=== PATIENT | male | born 1965 | race Caucasian/White ===

== ENCOUNTER 2019-04-06 10:49 | Outpatient (CLI) | payer OTHER, SELFPAY ==
--- NOTE | ~2019-04-06 | XR_ITS ---
EXAMINATION: XR chest 2V EXAM DATE: 04/06/2019 11:30 INDICATION: Cough, dizziness. TECHNIQUE: Frontal and lateral projections of the chest obtained and reviewed. Comparison is made to prior examination from 03/12/2018. FINDINGS: The lungs are clear. There are no pleural effusions. The cardiomediastinal silhouette is within normal limits. There is no pneumothorax suspected. The bones and soft tissues are unremarkab le. Right-sided humeral head rotator cuff repair anchor. IMPRESSION: Normal chest x-ray exam. Reviewed, dictated and finalized at location A. COUNTER CLERK IMPRESSION: Normal chest x-ray exam.
== END 2019-04-06 10:50 | disposition home or self-care (01) ==
LOC: ANHIMG 10:53
PROVIDERS: PCP Family Medicine; Visit Provider Family Medicine
DX: R05 Cough (principal)
CPT/HCPCS: 71046

== ENCOUNTER 2019-05-07 11:36 | Inpatient (IN) | payer OTHER, SELFPAY ==
[2019-05-07] VITALS (10 sets, daily range): BP systolic 128–160; BP diastolic 88–104; PULSE 86–112; RESP 14–26; TEMP 36.5–36.9; O2SAT 93–100; BMI 27.7
--- NOTE | ~2019-05-07 | XR_ITS ---
EXAMINATION: XR chest 2V DATE: 05/07/2019 12:25 INDICATION: Cough, fever and chest congestion TECHNIQUE: PA and lateral views of the chest were obtained. COMPARISON: Chest radiograph dated 04/06/2019 FINDINGS: The lungs remain clear with no focal airspace opacities, pulmonary edema, pleural effusion or pneumot horax. The cardiomediastinal silhouette is normal. Suture anchor likely for rotator cuff repair at th e right humeral head. IMPRESSION: 1. No acute cardiopulmonary disease. Reviewed, dictated and finalized at location A.
--- NOTE | 2019-05-07 12:12 | ECG_ITS ---
Measurements Intervals [place] Rate: 107 P: 25 AL: 162 QRS: 27 QRSD: 93 T: -13 QT: 318 QTc: 424 Interpretive Statements SINUS TACHYCARDIA LEFT ATRIAL ENLARGEMENT ANTEROSEPTAL INFARCT, AGE INDETERMINATE BASELINE ARTIFACT- I, II, III, AVR, AVL, AVF ABNORMAL ECG Electronically Signed On 05-07-2019 12:49:14 CDT by Biju Keys D.O.
[2019-05-07 12:36] LABS: Basophils Percent Auto 0.2 % (0.2-1.2); Hematocrit 52.3 % (42.0-52.0); Hemoglobin 17.5 g/dL (14.0-18.0); Immature Granulocyte Absolute 0.03 K/mm3 (0.00-0.031); Immature Granulocyte Percent A 0.3 % (0-0.5); Lymphocytes Absolute Auto 0.89 K/mm3 (0.9-3.2); Lymphocytes Percent Auto 8.9 % (18.3-44.2); Mean Corpuscular HGB Conc 33.5 g/dl (32-36); Mean Corpuscular Hemoglobin 29.9 pg (26-34); Mean Corpuscular Volume 89.2 fl (80-100); Mean Platelet Volume 12.2 fl (7.4-10.4); Monocytes Absolute Auto 0.4 K/mm3 (0.1-0.6); Monocytes Percent Auto 3.8 % (2.6-8.5); Neutrophils Absolute Auto 8.6 K/mm3 (1.3-6.7); Neutrophils Percent Auto 86.8 % (45.5-73.1); Platelet Count Result 206 k/mm3 (150-375); Red Blood Count 5.86 M/mm3 (4.6-6.20); Red Cell Distribution Width 12.3 % (11.5-14.5)
--- NOTE | 2019-05-07 12:40 | ED.GENADULT ---
HPI - General Adult General Chief complaint: Unspecified Stated complaint: multiple c/o Time Seen by Provider: 05/07/19 12:13 Related Data Allergies Allergy/AdvReac Type Severity Reaction Status Date / Time Iodinated Contrast Media Allergy Unknown Rash Verified 05/07/19 11:49 iodine Allergy Unknown Rash Verified 05/07/19 11:49 Iodine and Iodide Containing Allergy Unknown Rash Verified 05/07/19 11:49 Produc ioversol Allergy Unknown Unknown Verified 05/07/19 11:49 naproxen Allergy Unknown Unknown Verified 05/07/19 11:49 prednisone Allergy Unknown Unknown Verified 05/07/19 11:49 MRI DYE Allergy Mild HIVES Uncoded 05/07/19 11:49 [facility] Social History Social History Smoking status: Never smoker Alcohol intake: current Gender identity (if verbalized by the patient): Male Course Vital Signs Vital signs: Vital Signs Temperature 36.5 C 05/07/19 11:49 Pulse Rate 110 H 05/07/19 11:49 Respiratory Rate 26 H 05/07/19 11:49 Blood Pressure 160/104 H 05/07/19 11:49 Pulse Oximetry 100 05/07/19 11:49 Temperature 36.5 C 05/07/19 11:49 Pulse Rate 106 H 05/07/19 11:55 Respiratory Rate 26 H 05/07/19 11:49 Blood Pressure 160/104 H 05/07/19 11:49 Pulse Oximetry 100 05/07/19 11:49 Medical Decision Making Vital Signs Vital Signs: Vital Signs Temperature 36.5 C 05/07/19 11:49 Pulse Rate 110 H 05/07/19 11:49 Respiratory Rate 26 H 05/07/19 11:49 Blood Pressure 160/104 H 05/07/19 11:49 Pulse Oximetry 100 05/07/19 11:49 Temperature 36.5 C 05/07/19 11:49 Pulse Rate 106 H 05/07/19 11:55 Respiratory Rate 26 H 05/07/19 11:49 Blood Pressure 160/104 H 05/07/19 11:49 Pulse Oximetry 100 05/07/19 11:49 Lab Data Result diagrams: 05/07/19 12:31 05/07/19 12:31 Labs: Lab Results 03/20/20 03/20/20 Range/Units 12:31 12:31 WBC 10.0 (4.5-10.0) K/mm3 RBC 5.86 (4.6-6.20) M/mm3 Hgb 17.5 (14.0-18.0) g/dL Hct 52.3 H (42.0-52.0) % MCV 89.2 (80-100) fl MCH 29.9 (26-34) pg MCHC 33.5 (32-36) g/dl RDW 12.3 (11.5-14.5) % Plt Count 206 (150-375) k/mm3 MPV 12.2 H (7.4-10.4) fl Immature Gran % (Auto) 0.3 (0-0.5) % Neut % (Auto) 86.8 H (45.5-73.1) % Lymph % (Auto) 8.9 L (18.3-44.2) % [place] % (Auto) 3.8 (2.6-8.5) % Eos % (Auto) 0.0 (0-4.4) % Baso % (Auto) 0.2 (0.2-1.2) % Lymph # (Auto) 0.89 L (0.9-3.2) K/mm3 [place] # (Auto) 0.4 (0.1-0.6) K/mm3 Eos # (Auto) 0.0 (0-0.3) K/mm3 Baso # (Auto) 0.0 (0.0-0.1) K/mm3 Abs Immat Gran (auto) 0.03 (0.00-0.031) K/mm3 Absolute Neuts (auto) 8.6 H (1.3-6.7) K/mm3 Absolute Nucleated RBC 0.0 (0.0-0.012) K/mm3 Nucleated RBC % 0.0 (0.0-0.2) % Sodium Pending Potassium Pending Chloride Pending Carbon Dioxide Pending BUN Pending Creatinine Pending Estim Creat Clear Calc Pending Estimated GFR Pending Glucose Pending Calcium Pending Discharge Plan Discharge Prescriptions: No Action lisinopril 10 mg tablet 10 mg PO DAILY Qty: 30 RF: 3 cefdinir 300 mg capsule 300 mg PO Q12H Qty: 20 RF: 0 (DME) insulin syringe-needle U-100 [BD Insulin Syringe Ultra-Fine] 1 mL 31 gauge x 5/16 syringe See Rx Instructions .ROUTE .MEDSUPPLY Qty: 200 RF: 3 (DME) OneTouch Verio Strip See Rx Instructions .ROUTE .MEDSUPPLY Qty: 200 RF: 3 Jardiance 25 mg tablet 25 mg PO DAILY Qty: 90 RF: 0 Humalog Mix 75-25 KwikPen 100 unit/mL (75-25) insulin pen 50 unit SUB-Q QAM 90 Days Qty: 45 RF: 0 atorvastatin 80 mg tablet 80 mg PO DAILY Qty: 30 RF: 3 carvedilol 6.25 mg tablet 6.25 mg PO Q12H Qty: 60 RF: 3
--- NOTE | 2019-05-07 12:41 | ED.HA ---
HPI - Headache General Chief Complaint: Unspecified Stated Complaint: multiple c/o Time Seen by Provider: 05/07/19 12:13 Source: patient Mode of arrival: ambulatory Limitations: no limitations History of Present Illness HPI Narrative: The pt is a 54 y/o male who presents to the ED c/o 5-6/10 left frontal PIERRE onset 3 days ago. Pt states that the pain is sharp, and is not improved or worsened by anything. He states that he has taken Tylenol without relief. Pt reports resolved subjective fever, cough, N/V, and palpitations, but denies diarrhea. MD elicited complaint: headache Onset (ago): day(s) (3) Location: left and frontal Quality & Timing: sharp Exacerbating factors: none Relieving factors: nothing Associated symptoms: fever (Subjective, resolved), nausea, vomiting, cough and other (Palpitation) Treatments prior to arrival: acetaminophen Related Data Home Medications Medication Instructions Recorded Confirmed atorvastatin 80 mg PO HS 05/07/19 05/07/19 ertugliflozin [Steglatro] 15 mg PO DAILY 05/07/19 05/07/19 Allergies Allergy/AdvReac Type Severity Reaction Status Date / Time naproxen Allergy Intermediate Rash Verified 05/07/19 16:40 prednisone Allergy Intermediate Stopped Verified 05/07/19 16:40 Breathing Iodinated Contrast Media Allergy Mild Hives Verified 05/07/19 16:40 MRI DYE Allergy Mild HIVES Uncoded 05/07/19 16:40 Review of Systems Review of Systems: Narrative: Review of Systems Constitutional: Positive for resolved subjective fever. Respiratory: Positive for cough. Cardiovascular: Positive for palpitations. Gastrointestinal: Positive for nausea and vomiting. Negative for diarrhea. Neurological: Positive for 5-6/10 sharp left frontal PIERRE. All systems reviewed & are unremarkable except as noted in HPI and below PMFSH Past Medical History Medical History (Updated 05/07/19 @ 16:45 by Karen Saucedo MD) Carpal tunnel syndrome, right CKD stage 3 due to type 2 diabetes mellitus Erectile dysfunction Hypertension, essential Hypogonadism, male Ischemic cardiomyopathy Mild cardiomegaly Other hyperlipidemia ST elevation (STEMI) myocardial infarction involving left anterior descending coronary artery (10/17/16) Type 2 diabetes mellitus without complications Unspecified sleep apnea URI (upper respiratory infection) Vasculitis Surgical History Surgical History (Updated 05/07/19 @ 13:18 by Silas Salcido) H/O shoulder surgery left History of carpal tunnel release Right Hx of tonsillectomy Previous back surgery Social History Social History Smoking status: Never smoker Second hand tobacco smoke exposure: Yes Alcohol intake: unknown Substance use: never Substance use type: does not use Gender identity (if verbalized by the patient): Male Spiritual care concerns: No Agree to blood products: Yes Comments PCP: Dr. Liang Exam Narrative: Exam Narrative: Constitutional: Appears well-developed. No distress. HENT: Head: Normocephalic. Nose: Nose normal. Mouth/Throat: Oropharynx is clear and moist. Eyes: Conjunctiva are normal. Neck: Normal range of motion. Neck supple. Cardiovascular: Tachycardic and regular rhythm. Pulmonary/Chest: Effort normal and breath sounds normal. Abdominal: Soft. There is no tenderness. Musculoskeletal: Normal range of motion. No edema. Neurological: Alert and oriented to person, place, and time. Skin: Skin is warm. No pallor. Psychiatric: Normal mood and affect. Neuro: General: oriented to person, oriented to place, oriented to time and patient oriented x3 Cranial nerves: Yes CN's II-XII intact bilaterally Cognition (Neuro): normal cognition Speech: normal speech Motor exam (neuro): 5/5 motor strength present throughout Sensory Exam: normal sensation Coordination: [id number] test normal and [id number] test normal Course Consultations Consultation #1: Discussed case wit
[2019-05-07 13:19] LABS: Blood Urea Nitrogen 35 mg/dL (9-20); Calcium 10.6 mg/dL (8.4-10.2); Carbon Dioxide 23 mmol/L (22-30); Chloride 89 mmol/L (98-107); Estimated CRCL calculation 82 ml/min; Estimated Glomerular Filt Rate > 60; Potassium 5.3 mmol/L (3.4-5.0); Sodium 129 mmol/L (137-145)
[2019-05-07 13:23] LABS: Glucose 1022 mg/dL (75-110)
--- NOTE | 2019-05-07 13:23 | PC.NURSE ---
glucose level of 1022 per lab. notified
[2019-05-07 13:26] LABS: NT Pro B Type Natriuretic Pept 123 PG/ML (5-100); Troponin I < 0.012 ng/mL (0.000-0.034)
[2019-05-07 13:49] LABS: D Dimer 0.27 ug/mL (<0.48)
[2019-05-07] MEDS: SODIUM CHLORIDE 0.9% IV 1,000 ML 999 ML IV CONT ×2 (13:57→15:42)
[2019-05-07] MEDS: INSULIN HUMAN REGULAR (*BKC) 100 UNITS/ML 10 UNITS IV PUSH (13:58)
[2019-05-07] MEDS: METOCLOPRAMIDE HCL INJ 10 MG/2 ML VIAL IV PUSH (13:58)
[2019-05-07 15:05] LABS: Glucose Point of Care > 500 (65-105)
[2019-05-07] MEDS: INSULIN HUMAN REGULAR (*BKC) 100 UNITS in SODIUM CHLORIDE 0.9% IV 99 ML 19.2 UNITS IV CONT (15:40)
[2019-05-07 16:16] LABS: Blood Urea Nitrogen 34 mg/dL (9-20); Calcium 10.2 mg/dL (8.4-10.2); Carbon Dioxide 21 mmol/L (22-30); Chloride 103 mmol/L (98-107); Estimated CRCL calculation 91 ml/min; Estimated Glomerular Filt Rate > 60; Potassium 4.3 mmol/L (3.4-5.0); Sodium 137 mmol/L (137-145)
--- NOTE | 2019-05-07 16:20 | PC.NURSE ---
This patient, Hunter Chandler, was admitted to Intensive Care Unit-1. Patient/family oriented to hospital policies and general routines including ID bracelet, bed and alarms, visiting hours, pain management, procedures, bathroom and other care routines, personal items, smoking policy, room service/diet, and visiting hours. Valuables list has been completed. Information on how to activate the Rapid Response Team has been discussed. Patient/Family are encouraged to report perceived risks to care and to ask questions if they do not understand what they are told or what they should do.
[2019-05-07 16:21] LABS: Glucose 639 mg/dL (75-110)
[2019-05-07 16:25] LABS: Troponin I < 0.012 ng/mL (0.000-0.034)
--- NOTE | 2019-05-07 17:00 | PM.IMHP ---
H&P: HPI History of Present Illness Chief complaint: Shortness of breath, nausea, and vomiting. Narrative: Hunter Chandler is a 54-year-old male with insulin-dependent type 2 diabetes mellitus, coronary artery disease with history of GA at the age of 50, hypertension, and hyperlipidemia who presented to the emergency department earlier today via private vehicle from home for evaluation of shortness of breath, nausea, and vomiting. He has not been feeling well for the past 3 days, initially with cold symptoms to include a mild cough rarely productive of clear phlegm, subjective fever for which he has been taking Tylenol, frontal headache, nausea, and several episodes of emesis. Today he began feeling short of breath with racing heart, and thus he came in for evaluation. Random glucose on arrival was 1022, and with further questioning he admits that he has not been checking his glucose for the last 1 month ?because it cuts up my fingers? and he also admits that on occasion he forgets to take his insulin, although his girlfriend tries to remind him to take it daily. He denies recent travel and concerns for COVID exposure. He has not had a documented fever and denies chills and sweats. His headache has essentially resolved. No neck pain, odynophagia, or rash. He denies chest pain and pleuritic pain. No orthopnea, PND, or lower extremity edema. He denies hematemesis, melena, hematochezia. No diarrhea. No dysuria, urgency, or hesitancy. He denies blurry vision, polyuria, and polydipsia. Review of Systems Review of Systems: Narrative: Twelve systems were reviewed with pertinent positives and negatives as per HPI. Notes subjective fever as above. He apparently had a similar cold virus approximately 1 month ago and symptoms returned this Friday. 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 His last hemoglobin A1c was some around 7.0. Denies any recent lows. Rarely will he get neuropathy symptoms, mainly in his toes. No history of retinopathy. He apparently was diagnosed with sleep apnea but after losing weight ?no longer has it.? DOT physical in July 2018 apparently demonstrated some abnormalities on his EKG, with subsequent negative stress test. He also had an overnight sleep study at that time, showing that his sleep apnea had resolved, reportedly. Except as documented, all other systems were reviewed and are negative. [facility] Past Medical History Medical History (Updated 05/07/19 @ 17:27 by Gabby Seo PA-C) Erectile dysfunction Hyperlipidemia Hypertension Hypogonadism, male Insulin dependent type 2 diabetes mellitus Ischemic cardiomyopathy Reported history of ?mild? ischemic cardiomyopathy. No echocardiogram has been done at this facility that I can see. Obstructive sleep apnea Sleep study in July 2018 demonstrated no need for CPAP. ST elevation (STEMI) myocardial infarction involving left anterior descending coronary artery (10/17/16) Status post drug-eluting stent x2 to the LAD, done at [facility]. Stress test in July 2018 was reportedly unremarkable. Surgical History Surgical History (Updated 05/07/19 @ 17:38 by Gabby Seo PA-C) Status post carpal tunnel release of both wrists Status post right rotator cuff repair Status post spinal surgery L5 fusion with hardware. Status post tonsillectomy Family History Family History Father Family history of lung cancer Mother Family history of congestive heart failure Other Diabetes mellitus Hypertension Social History Social History (Updated 05/07/19 @ 17:24 by Gabby Seo PA-C) Social History: The patient lives in [place] with his mother. He designates his mother, Arlette, as his surrogate decision maker and he wishes to be a full code. 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 He is a lifelong nonsmoker and de
[2019-05-07 17:29] LABS: Beta-Hydroxybutyrate/Acetoacetate 3.47 mmol/L (0.02-0.27)
[2019-05-07] MEDS: SODIUM CHLORIDE 0.9% IV 1,000 ML 150 ML IV CONT (17:38)
[2019-05-07 17:44] LABS: Glucose Point of Care 379 (65-105)
[2019-05-07 17:54] LABS: Hemoglobin A1C > 14.0 % (<5.7)
[2019-05-07 18:07] LABS: Add Urine Microscopic? YES; Appearance Urine Clear (Clear); Bilirubin Urine Negative (Negative); Blood Urine Negative (Negative); Color Urine Straw (Yellow); Glucose Urine UA 3+ mg/dL (Negative); Ketones Urine 1+ mg/dL (Negative); Leukocyte Esterase Ur Negative LEU/UL (Negative); Mucus Urine Rare /lpf; Nitrate Urine Negative (Negative); Protein Urine 1+ mg/dL (Negative); Specific Grav Ur 1.036 (1.001-1.035); Squamous Epithelial Cell Urine Rare /hpf (Few); Urobilinogen Urine Negative mg/dL (<2.0)
[2019-05-07 18:32] LABS: Blood Urea Nitrogen 30 mg/dL (9-20); Calcium 10.2 mg/dL (8.4-10.2); Carbon Dioxide 34 mmol/L (22-30); Chloride 104 mmol/L (98-107); Estimated CRCL calculation 71 ml/min; Estimated Glomerular Filt Rate > 60; Glucose 418 mg/dL (75-110); Magnesium 2.3 mg/dL (1.6-2.3); Phosphorus 3.9 mg/dL (2.5-4.5); Potassium 3.9 mmol/L (3.4-5.0); Sodium 143 mmol/L (137-145)
[2019-05-07 18:39] LABS: Glucose Point of Care 361 (65-105)
[2019-05-07 18:47] LABS: Beta-Hydroxybutyrate/Acetoacetate 0.62 mmol/L (0.02-0.27)
[2019-05-07 19:31] LABS: Glucose Point of Care 323 (65-105)
[2019-05-07 20:04] LABS: Troponin I < 0.012 ng/mL (0.000-0.034)
[2019-05-07] MEDS: carvediloL 6.25 MG TABLET PO (20:12)
[2019-05-07] MEDS: ATORVASTATIN 40 MG TABLET 80 MG PO (20:13)
[2019-05-07 20:16] LABS: Glucose Point of Care 267 (65-105)
[2019-05-07 21:14] LABS: Glucose Point of Care 189 (65-105)
[2019-05-07] MEDS: KCL 20 MEQ/D5/0.45% SOD CHL 1,000 ML 150 ML IV CONT (21:21)
[2019-05-07 22:12] LABS: Glucose Point of Care 171 (65-105)
[2019-05-07 22:13] LABS: Blood Urea Nitrogen 30 mg/dL (9-20); Calcium 9.9 mg/dL (8.4-10.2); Carbon Dioxide 35 mmol/L (22-30); Chloride 107 mmol/L (98-107); Estimated CRCL calculation 88 ml/min; Estimated Glomerular Filt Rate > 60; Glucose 179 mg/dL (75-110); Potassium 4.2 mmol/L (3.4-5.0); Sodium 148 mmol/L (137-145)
[2019-05-07 22:58] LABS: Glucose Point of Care 163 (65-105)
[2019-05-08] VITALS (8 sets, daily range): BP systolic 124–158; BP diastolic 70–93; PULSE 65–93; RESP 13–19; TEMP 36.7–36.9; O2SAT 96–99
[2019-05-08] MEDS: SODIUM CHLORIDE 0.45% 1,000 ML 100 ML IV CONT (00:29)
[2019-05-08 00:39] LABS: Glucose Point of Care 360 (65-105)
[2019-05-08 01:23] LABS: Blood Urea Nitrogen 26 mg/dL (9-20); Calcium 8.7 mg/dL (8.4-10.2); Carbon Dioxide 29 mmol/L (22-30); Chloride 106 mmol/L (98-107); Estimated CRCL calculation 79 ml/min; Estimated Glomerular Filt Rate > 60; Glucose 327 mg/dL (75-110); Potassium 4.3 mmol/L (3.4-5.0); Sodium 142 mmol/L (137-145)
[2019-05-08 05:44] LABS: Blood Urea Nitrogen 27 mg/dL (9-20); Calcium 8.9 mg/dL (8.4-10.2); Carbon Dioxide 37 mmol/L (22-30); Chloride 105 mmol/L (98-107); Estimated CRCL calculation 88 ml/min; Estimated Glomerular Filt Rate > 60; Glucose 219 mg/dL (75-110); Potassium 4.6 mmol/L (3.4-5.0); Sodium 143 mmol/L (137-145)
[2019-05-08] MEDS: lisinopriL 10 MG TABLET PO (08:48)
[2019-05-08] MEDS: carvediloL 6.25 MG TABLET PO (08:48)
[2019-05-08 09:06] LABS: Base Excess ABG 2.3 mEq/l (+/-2.0); Fractional Inspired Oxygen 21 %; HCO3 ABG 27.5 mEq/l (22.0-26.0); Modified Allen's Test Pass; Oxygen Content ABG 20.7 %vol (16.0-22.0); Oxygen Saturation ABG 95.7 % (95.0-100.0); PCO2 ABG 44.8 mmHg (35.0-45.0); PO2 ABG 79.1 mmHg (80.0-100.0); PO2 FiO2 Ratio Arterial Blood 3.77 %; Site Drawn RIGHT RADIAL; Total Hemoglobin 15.5 g/dL (12.0-18.0); pH ABG 7.406 (7.350-7.450)
[2019-05-08 09:07] LABS: Device ROOM AIR
--- NOTE | 2019-05-08 10:27 | PM.DS ---
DS: Diagnosis Admitting Diagnosis Admitting Diagnosis: Type 2 diabetes mellitus with hyperglycemia DS: Summary Hospital Course Reason for hospitalization: hyperglycemia Hospital Course: Was not monitoring sugars and was taking 5 U instead of 50 U. BS 1022 at admission. Treated with IVF and insulin drip overnight. Sugars rapidly corrected. Tolerated diet. Wanted to go home. Status at Discharge Functional status at discharge: independent ambulation Overall status at discharge: patient is back to baseline Time Spent with Patient Time attestation: Total time spent providing and/or coordinating discharge services: 33 min Exam Narrative: Exam Narrative: HEENT: EOMI, PERRL, pharyngeal mucosa pink and intact NECK: No JVD, adenopathy, or thyromegaly CHEST: Clear to auscultation. Normal effort. HEART: NL S1/S2, regular, no murmur ABDOMEN: BS+, soft, nontender, no mass, no bruits EXTREMITIES: No cyanosis, edema, or clubbing NEUROLOGIC: CN intact and symmetric to inspection. MUSCULOSKELETAL: Tone and strength symmetric. PSYCH: Alert. Oriented to person, place, and time. DS: Data Data Completed and Pending Labs on day of discharge: Labs from last 24 hours 05/08/19 05/08/19 05/08/19 09:01 04:51 01:03 WBC RBC Hgb Hct MCV MCH MCHC RDW Plt Count MPV Immature Gran % (Auto) Neut % (Auto) Lymph % (Auto) [place] % (Auto) Eos % (Auto) Baso % (Auto) Lymph # (Auto) [place] # (Auto) Eos # (Auto) Baso # (Auto) Abs Immat Gran (auto) Absolute Neuts (auto) Absolute Nucleated RBC Nucleated RBC % D-Dimer Puncture Site Right radial ABG pH 7.406 ABG pCO2 44.8 ABG pO2 79.1 L ABG PO2/FiO2 Ratio 3.77 ABG HCO3 27.5 H ABG O2 Saturation 95.7 ABG O2 Content 20.7 ABG Base Excess 2.3 A-a Gradient 17.0 Oxyhemoglobin 95.0 Total Hemoglobin 15.5 O2 Delivery Device Room air O2 Liters/Min Not Reportable FiO2 21 Sodium 143 142 Potassium 4.6 4.3 Chloride 105 106 Carbon Dioxide 37 H 29 BUN 27 H 26 H Creatinine 0.80 0.90 Estim Creat Clear Calc 88 79 Estimated GFR > 60 > 60 Glucose 219 H 327 H POC Capillary Glucose Hemoglobin A1c Calcium 8.9 8.7 Phosphorus Magnesium Troponin I NT-Pro-B Natriuret Pep Beta-Hydroxybutyrate/Acetoacetate Urine Color Urine Appearance Urine pH Ur Specific [place] Urine Protein Urine Glucose (UA) Urine Ketones Ur Blood (Man) Urine Nitrate Urine Bilirubin Urine Urobilinogen Leukocyte Esterase Rfl Urine WBC Ur Squamous Epith Cells Hyaline Casts Urine Mucus 05/08/19 05/07/19 05/07/19 00:33 22:56 22:10 WBC RBC Hgb Hct MCV MCH MCHC RDW Plt Count MPV Immature Gran % (Auto) Neut % (Auto) Lymph % (Auto) [place] % (Auto) Eos % (Auto) Baso % (Auto) Lymph # (Auto) [place] # (Auto) Eos # (Auto) Baso # (Auto) Abs Immat Gran (auto) Absolute Neuts (auto) Absolute Nucleated RBC Nucleated RBC % D-Dimer Puncture Site ABG pH ABG pCO2 ABG pO2 ABG PO2/FiO2 Ratio ABG HCO3 ABG O2 Saturation ABG O2 Content ABG Base Excess A-a Gradient Oxyhemoglobin Total Hemoglobin O2 Delivery Device O2 Liters/Min FiO2 Sodium Potassium Chloride Carbon Dioxide BUN Creatinine Estim Creat Clear Calc Estimated GFR Glucose POC Capillary Glucose 360 H 163 H 171 H Hemoglobin A1c Calcium Phosphorus Magnesium Troponin I NT-Pro-B Natriuret Pep Beta-Hydroxybutyrate/Acetoacetate Urine Color Urine Appearance Urine pH Ur Specific [place] Urine Protein Urine Glucose (UA) Urine Ketones Ur Blood (Man) Urine Nitrate Urine Bilirubin Urine Urobilinogen Leukocyte Esterase Rfl Urine WBC Ur Squamous Epith Cell
--- NOTE | 2019-05-08 11:17 | WPDCNINT ---
Assessment and Plan Assessment and plan (1) Electrolyte abnormality: Code(s): E87.8 - Other disorders of electrolyte and fluid balance, not elsewhere classified Status: Acute Assessment and Plan: He had hyperkalemia yesterday likely secondary to mild acidosis. It improved with insulin drip and IV fluid. Serum sodium was 129 but corrected sodium was 144. (2) Severe hyperglycemia due to diabetes mellitus: Code(s): E11.65 - Type 2 diabetes mellitus with hyperglycemia Status: Acute Assessment and Plan: He was started on insulin drip and IV fluids. His anion gap was 17 but his bicarb was 23. His anion gap closed and he was transition to his basal bolus insulin already. Beta hydroxy butyric acid was elevated and the level at the time of presentation was 3.47 which has down trended to 0.62. Seems to be tolerating well. He is able to tolerate a diet. He has improved symptomatically as well. Encouraged him to be more compliant with his insulin management protocol and and dietary recommendations. Likely etiology is noncompliance with the medication regimen. He does not seem to have any evidence of any infectious etiology. (3) Insulin dependent type 2 diabetes mellitus: Code(s): E11.9 - Type 2 diabetes mellitus without complications; Z79.4 - skilled nursing (current) use of insulin Status: Acute Assessment and Plan: I encouraged him to be his home basal dose of insulin and dietary recommend (4) Hypertension: Code(s): I10 - Essential (primary) hypertension Status: Acute Assessment and Plan: His antihypertensive medications were on hold here in the hospital. It will be resumed at the time of discharge. (5) Ischemic cardiomyopathy: Code(s): I25.5 - Ischemic cardiomyopathy Status: Acute Assessment and Plan: He is currently euvolemic. He received IV fluid but did not develop any signs of fluid overload. Additional Plan DVT prophylaxis with subcu heparin GI prophylaxis not indicated He will be downgraded to medical floor with the medical team planning to discharge him home today. Due to a high probability of clinically significant, life threatening deterioration, the patient required my highest level of preparedness to intervene emergently and I personally spent this critical care time directly and personally managing the patient. This critical care time included obtaining a history; examining the patient; pulse oximetry; ordering and review of studies; arranging urgent treatment with development of a management plan; evaluation of patient's response to treatment; frequent reassessment; and discussions with other providers. It was exclusive of separately billable procedures and treating other patients and teaching time. Please see Assessment and Plan section and the rest of the note for further information on patient assessment and treatment. Harpsichord Maker Consult Note Consult date: 05/08/19 Time Seen: 09:24 HPI: Hunter Chandler is a 54 year old male with past medical history of type 2 diabetes mellitus, coronary artery disease with history of [place], hypertension and hyperlipidemia who came into the ED with complaints of feeling of being unwell, shortness of breath nausea and vomiting. He has been non compliant to the medication regimen and B's some doses of insulin. He is also not compliant with the dietary recommendations as well. He did have some mild cough with clear phlegm but did not have any fever. Denied have any headache. He was evaluated in the ED. His blood sugar was 1022, Anion gap 17 and bicarb of 23. He did not have any signs and symptoms of any infectious etiology. Denied have any recent travel or any concerning exposure. He did not have any orthopnea or lower extremity edema. Denied having hematemesis melena or hematochezia. Denied have any abdominal pain and dysuria or diarrhea. He was started on insulin drip
== END 2019-05-08 11:15 | disposition home or self-care (01) | DRG 638 ==
LOC: ANHED 15:09 → ANHICU 15:22
PROVIDERS: Physician Assistant; Admitting Provider Internal Medicine; Emergency Provider Emergency Medicine; PCP Family Medicine; Visit Provider Internal Medicine
DX: E11.65 Type 2 diabetes mellitus with hyperglycemia (principal); E87.2 Acidosis; Z28.21 Immunization not carried out because of patient refusal; Z79.4 Long term (current) use of insulin; I25.10 Atherosclerotic heart disease of native coronary artery without angina pectoris; I25.2 Old myocardial infarction; I10 Essential (primary) hypertension; E78.5 Hyperlipidemia, unspecified; E11.42 Type 2 diabetes mellitus with diabetic polyneuropathy; N52.9 Male erectile dysfunction, unspecified; I25.5 Ischemic cardiomyopathy; G47.33 Obstructive sleep apnea (adult) (pediatric); Z98.1 Arthrodesis status; E87.5 Hyperkalemia; Z91.14 Patient's other noncompliance with medication regimen; Z91.11 Patient's noncompliance with dietary regimen
CPT/HCPCS: 36415; 36600; 71046; 80048; 81001; 82010; 82805; 82948; 83036; 83735; 83880; 84100; 84484; 85025; 85380; 87081; 93005; 96361; 96365; 96375; 96376; 99285; A9270; J1200; J1815; J2765; J3480; J7030

== ENCOUNTER 2019-05-18 09:19 | Outpatient (CLI) | payer OTHER, SELFPAY ==
[2019-05-18 10:02] LABS: Blood Urea Nitrogen 16 mg/dL (9-20); Calcium 8.6 mg/dL (8.4-10.2); Carbon Dioxide 30 mmol/L (22-30); Chloride 98 mmol/L (98-107); Estimated Glomerular Filt Rate > 60; Glucose 401 mg/dL (75-110); Potassium 4.4 mmol/L (3.4-5.0); Sodium 133 mmol/L (137-145)
== END 2019-05-18 09:20 | disposition home or self-care (01) ==
PROVIDERS: PCP Family Medicine; Visit Provider Physician Assistant Medical
DX: E11.65 Type 2 diabetes mellitus with hyperglycemia (principal)
CPT/HCPCS: 36415; 80048

== ENCOUNTER 2019-05-25 09:32 | Outpatient (CLI) | payer OTHER, SELFPAY ==
[2019-05-25 10:47] LABS: Blood Urea Nitrogen 20 mg/dL (9-20); Calcium 10.1 mg/dL (8.4-10.2); Carbon Dioxide 32 mmol/L (22-30); Chloride 100 mmol/L (98-107); Estimated Glomerular Filt Rate > 60; Glucose 47 mg/dL (75-110); Potassium 4.4 mmol/L (3.4-5.0); Sodium 136 mmol/L (137-145)
== END 2019-05-25 09:33 | disposition home or self-care (01) ==
PROVIDERS: PCP Family Medicine; Visit Provider Nurse Practitioner Family
DX: E87.8 Other disorders of electrolyte and fluid balance, not elsewhere classified (principal)
CPT/HCPCS: 36415; 80048

== ENCOUNTER 2019-06-02 09:26 | Outpatient (CLI) | payer OTHER, SELFPAY ==
[2019-06-02 10:43] LABS: Blood Urea Nitrogen 19 mg/dL (9-20); Calcium 9.5 mg/dL (8.4-10.2); Carbon Dioxide 35 mmol/L (22-30); Chloride 98 mmol/L (98-107); Estimated Glomerular Filt Rate > 60; Glucose 156 mg/dL (75-110); Potassium 4.8 mmol/L (3.4-5.0); Sodium 136 mmol/L (137-145)
== END 2019-06-02 09:27 | disposition home or self-care (01) ==
PROVIDERS: PCP Family Medicine; Visit Provider Nurse Practitioner Family
DX: E87.1 Hypo-osmolality and hyponatremia (principal)
CPT/HCPCS: 36415; 80048

== ENCOUNTER 2019-09-06 06:55 | Outpatient (CLI) | payer OTHER, SELFPAY ==
[2019-09-06 07:58] LABS: Creatinine Urine 53.7 mg/dL
[2019-09-06 08:04] LABS: MALB Creatinine Ratio 53.4 mg/g (0-30); Microalbumin Urine Random 28.7 mg/L (0-16.7)
[2019-09-06 08:14] LABS: Free T4 Free Thyroxine 0.73 ng/mL (0.78-2.19)
[2019-09-10 14:22] LABS: Testosterone Free 30.2 pg/mL (35.0-155.0); Testosterone Total 201 ng/dL (250-1100)
== END 2019-09-06 06:56 | disposition home or self-care (01) ==
PROVIDERS: PCP Family Medicine; Visit Provider Internal Medicine Endocrinology, Diabetes & Metabolism
DX: R79.89 Other specified abnormal findings of blood chemistry (principal); E11.65 Type 2 diabetes mellitus with hyperglycemia; E29.1 Testicular hypofunction
CPT/HCPCS: 36415; 82043; 84402; 84403; 84439; 84443

== ENCOUNTER 2019-09-25 06:52 | Outpatient (CLI) | payer OTHER, SELFPAY ==
[2019-09-25 07:21] LABS: Hematocrit 46.1 % (42.0-52.0); Hemoglobin 15.2 g/dL (14.0-18.0)
[2019-09-25 07:32] LABS: Alanine Aminotransferase 28 U/L (4-50); Alkaline Phosphatase 62 U/L (38-126); Anion Gap 5 mmol/L (8-16); Aspartate Amino Transferase 24 U/L (17-59); Bilirubin,Total 0.6 mg/dL (0.2-1.3); Blood Urea Nitrogen 25 mg/dL (9-20); Calcium 8.7 mg/dL (8.4-10.2); Carbon Dioxide 32 mmol/L (22-30); Chloride 101 mmol/L (98-107); Estimated Glomerular Filt Rate > 60; Glucose 169 mg/dL (75-110); Potassium 4.2 mmol/L (3.4-5.0); Sodium 138 mmol/L (137-145)
[2019-09-25 08:02] LABS: Prostate Specific Antigen 0.7 ng/mL (< OR = 4.0)
[2019-09-30 14:17] LABS: Testosterone Free 45.3 pg/mL (35.0-155.0); Testosterone Total 328 ng/dL (250-1100)
== END 2019-09-25 06:53 | disposition home or self-care (01) ==
PROVIDERS: PCP Family Medicine; Visit Provider Internal Medicine Endocrinology, Diabetes & Metabolism
DX: E11.65 Type 2 diabetes mellitus with hyperglycemia (principal); E29.1 Testicular hypofunction; E66.9 Obesity, unspecified; E78.5 Hyperlipidemia, unspecified; I10 Essential (primary) hypertension; Z68.36 Body mass index [BMI] 36.0-36.9, adult
CPT/HCPCS: 36415; 80053; 84153; 84402; 84403; 85014; 85018; G0103

== ENCOUNTER 2019-11-27 06:52 | Outpatient (CLI) | payer OTHER, SELFPAY ==
[2019-11-27 08:20] LABS: Cholesterol 138 mg/dL (0-200); HDL Direct 36 mg/dL; Triglycerides 87 mg/dL (<150)
[2019-11-27 08:31] LABS: LDL Cholesterol Direct 78 mg/dL
== END 2019-11-27 06:53 | disposition home or self-care (01) ==
PROVIDERS: PCP Family Medicine; Visit Provider Internal Medicine Cardiovascular Disease
DX: E78.5 Hyperlipidemia, unspecified (principal)
CPT/HCPCS: 36415; 80061

== ENCOUNTER 2020-03-27 13:51 | Outpatient (CLI) | payer OTHER, SELFPAY ==
--- NOTE | ~2020-03-27 | XR_ITS ---
EXAMINATION:XR_[id number]_CR DATE: 03/27/2020 14:17 INDICATION: Cervicalgia with left-sided neck pain TECHNIQUE: AP, lateral, lateral swimmers and odontoid views of the cervical spine are provided. COMPARISON: None FINDINGS: Alignment is normal. Odontoid is intact. Normal atlantoaxial interval. Vertebral body heights are no rmal. Moderate disc height loss at C5-C6 with associated mild left-sided and moderate right-sided unc overtebral osteoarthritis. Remaining disc heights are normal. Mild multilevel cervical facet osteoart hritis. Prevertebral soft tissues are normal. Visualized apices of lungs are clear. IMPRESSION: 1. Cervical spondylosis, moderate at C5-C6 and otherwise mild. Reviewed, dictated and finalized at location A. 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
== END 2020-03-27 13:52 | disposition home or self-care (01) ==
LOC: ANHIMG 13:54
PROVIDERS: PCP Family Medicine; Visit Provider Nurse Practitioner Family
DX: M47.892 Other spondylosis, cervical region (principal)
CPT/HCPCS: 72040

== ENCOUNTER 2020-05-19 06:52 | Outpatient (CLI) | payer OTHER, SELFPAY ==
[2020-05-19 07:49] LABS: Anion Gap 6 mmol/L (8-16); Blood Urea Nitrogen 25 mg/dL (9-20); Calcium 9.3 mg/dL (8.4-10.2); Carbon Dioxide 35 mmol/L (22-30); Chloride 101 mmol/L (98-107); Cholesterol 160 mg/dL (0-200); Estimated Glomerular Filt Rate > 60; Glucose 304 mg/dL (75-110); HDL Direct 45 mg/dL; Potassium 4.4 mmol/L (3.4-5.0); Sodium 142 mmol/L (137-145); Triglycerides 104 mg/dL (<150)
[2020-05-19 08:01] LABS: LDL Cholesterol Direct 84 mg/dL
[2020-05-19 08:15] LABS: MALB Creatinine Ratio 33.9 mg/g (0-30); Microalbumin Urine Random 30.5 mg/L (0-16.7)
== END 2020-05-19 06:53 | disposition home or self-care (01) ==
PROVIDERS: PCP Family Medicine; Visit Provider Internal Medicine Endocrinology, Diabetes & Metabolism
DX: E11.65 Type 2 diabetes mellitus with hyperglycemia (principal); Z79.4 Long term (current) use of insulin
CPT/HCPCS: 36415; 80048; 80061; 82043; 84443

== ENCOUNTER 2020-07-14 10:58 | Outpatient (CLI) | payer OTHER, SELFPAY ==
--- NOTE | ~2020-07-14 | XR_ITS ---
EXAMINATION: XR lumbar spine 2-3V DATE: 07/14/2020 11:36 INDICATION: Low back pain TECHNIQUE: Anteroposterior and lateral views of the lumbar spine, and cone-down lateral view of the l umbosacral junction were obtained. COMPARISON: 04/09/2017 FINDINGS: There are changes of posterior fusion and laminectomy at L5-S1. An interbody device is seen in the L5-S1 disc space. There are 5 mm of stable anterolisthesis of L5 on S1. There are [address] able retrolisthesis of L4 on L5. The vertebral body heights are maintained. There is no fracture. The bowel gas pattern is normal. Small degenerative osteophytes project from the anterior endplates of m ultiple vertebral bodies. IMPRESSION: 1. Mild lumbar spondylosis without acute findings or significant interval change. Reviewed, dictated and finalized at location B. IMPRESSION: 1. Mild lumbar spondylosis without acute findings or significant interval sujatha messina
== END 2020-07-14 10:59 ==
PROVIDERS: PCP Family Medicine
DX: S30.0XXA Contusion of lower back and pelvis, initial encounter (principal); X58.XXXA Exposure to other specified factors, initial encounter; M47.896 Other spondylosis, lumbar region
CPT/HCPCS: 72100

== ENCOUNTER 2020-11-14 09:22 | Outpatient (CLI) | payer OTHER, SELFPAY ==
--- NOTE | 2020-11-14 09:39 | EST_ITS ---
Patient Info Name: Hunter Chandler Age: 55 years : 1965 Gender: Male Ht: 67 in Wt: 252 lbs BSA: 2.38 m2 HR: 84 bpm BP: 135 / 68 mmHg Exam Date: 11/14/2020 9:51 AM Exam Location: [facility] Stress Patient Status: Outpatient Admit Date: 11/14/2020 Staff Ordering Physician: Biju Keys DO Attending Provider: Biju Keys DO Exercise Technologist: Lauryn Waller CT Exercise Physician: Biju Keys DO Exam Type: CA stress test treadmill Study Info Indications I25.10 - Atherosclerotic heart disease of [place] coronary artery without angina pectoris An exercise stress test was performed. Summary 1. 1. Abnormal West exercise stress test for ischemic ST changes by ECG criteria. 2. 2. Good functional capacity, achieving 10 METs of workload. 3. 3. Appropriate HR response to exercise. 4. 4. Appropriate HR recovery at 1 minute post exercise. 5. 5. Hypertensive response to exercise. 6. 6. No imaging with stress testing. 7. 7. Patient informed of the above results. Protocol: West Stress ECG Details Stage: REST Duration (min): 1 min : 3 sec Speed (mph): 0.0 Grade (%): 0 HR (bpm): 85 SBP (mmHg): 135 DBP (mmHg): 68 METS: --- Stage: REST Duration (min): 7 min : 52 sec Speed (mph): 0.0 Grade (%): 0 HR (bpm): 86 SBP (mmHg): 135 DBP (mmHg): 68 METS: --- Stage: STAGE 1 Duration (min): 1 min : 0 sec Speed (mph): 1.7 Grade (%): 10 HR (bpm): 109 SBP (mmHg): 135 DBP (mmHg): 68 METS: --- Stage: STAGE 1 Duration (min): 2 min : 0 sec Speed (mph): 1.7 Grade (%): 10 HR (bpm): 117 SBP (mmHg): 135 DBP (mmHg): 68 METS: --- Stage: STAGE 1 Duration (min): 3 min : 0 sec Speed (mph): 1.7 Grade (%): 10 HR (bpm): 121 SBP (mmHg): 203 DBP (mmHg): 98 METS: --- Stage: STAGE 2 Duration (min): 1 min : 0 sec Speed (mph): 2.5 Grade (%): 12 HR (bpm): 127 SBP (mmHg): 203 DBP (mmHg): 98 METS: --- Stage: STAGE 2 Duration (min): 2 min : 0 sec Speed (mph): 2.5 Grade (%): 12 HR (bpm): 133 SBP (mmHg): 203 DBP (mmHg): 98 METS: --- Stage: STAGE 2 Duration (min): 3 min : 0 sec Speed (mph): 2.5 Grade (%): 12 HR (bpm): 135 SBP (mmHg): 215 DBP (mmHg): 57 METS: --- Stage: STAGE 3 Duration (min): 1 min : 0 sec Speed (mph): 3.4 Grade (%): 14 HR (bpm): 146 SBP (mmHg): 215 DBP (mmHg): 61 METS: --- Stage: STAGE 3 Duration (min): 1 min : 59 sec Speed (mph): 3.4 Grade (%): 14 HR (bpm): 156 SBP (mmHg): 215 DBP (mmHg): 61 METS: --- Stage: RECOVERY Duration (min): 1 min : 0 sec Speed (mph): 0.0 Grade (%): 0 HR (bpm): 137 SBP (mmHg): 215 DBP (mmHg): 61 METS: --- Stage: RECOVERY Duration (min): 2 min : 0 sec Speed (mph): 0.0 Grade (%): 0 HR (bpm): 115 SBP (mmHg): 215 DBP (mmHg):
== END 2020-11-14 09:23 | disposition home or self-care (01) ==
PROVIDERS: PCP Family Medicine; Visit Provider Internal Medicine Cardiovascular Disease
DX: I25.10 Atherosclerotic heart disease of native coronary artery without angina pectoris (principal)
CPT/HCPCS: 93017

== ENCOUNTER 2020-12-15 01:59 | Day surgery (SDC) | payer OTHER, SELFPAY ==
--- NOTE | 2020-12-14 13:37 | PHAR ---
Patient has had solu-medrol in the past per Dr. Maya office with no ADR.
[2020-12-14 14:10] VITALS: BMI 38.3
[2020-12-15] VITALS (10 sets, daily range): BP systolic 114–155; BP diastolic 67–92; PULSE 75–86; RESP 15–22; TEMP 36.7; O2SAT 92–100; BMI 39.2
[2020-12-15 07:06] LABS: Basophils Percent Auto 0.5 % (0.2-1.2); Eosinophils Absolute Auto 0.1 K/mm3 (0-0.3); Eosinophils Percent Auto 1.4 % (0-4.4); Hematocrit 44.9 % (42.0-52.0); Hemoglobin 15.1 g/dL (14.0-18.0); Immature Granulocyte Absolute 0.02 K/mm3 (0.00-0.031); Immature Granulocyte Percent A 0.3 % (0-0.5); Lymphocytes Absolute Auto 1.68 K/mm3 (0.9-3.2); Lymphocytes Percent Auto 25.2 % (18.3-44.2); Mean Corpuscular HGB Conc 33.6 g/dl (32-36); Mean Corpuscular Hemoglobin 30.6 pg (26-34); Mean Corpuscular Volume 90.9 fl (80-100); Mean Platelet Volume 10.1 fl (7.4-10.4); Monocytes Absolute Auto 0.5 K/mm3 (0.1-0.6); Monocytes Percent Auto 7.5 % (2.6-8.5); Neutrophils Absolute Auto 4.3 K/mm3 (1.3-6.7); Neutrophils Percent Auto 65.1 % (45.5-73.1); Platelet Count Result 208 k/mm3 (150-375); Red Blood Count 4.94 M/mm3 (4.6-6.20); Red Cell Distribution Width 12.1 % (11.5-14.5); White Blood Count 6.7 K/mm3 (4.5-10.0)
[2020-12-15 07:29] LABS: Anion Gap 10 mmol/L (8-16); Blood Urea Nitrogen 22 mg/dL (9-20); Calcium 9.8 mg/dL (8.4-10.2); Carbon Dioxide 27 mmol/L (22-30); Chloride 107 mmol/L (98-107); Estimated CRCL calculation 94 ml/min; Estimated Glomerular Filt Rate > 60; Glucose 115 mg/dL (65-110); Potassium 4.4 mmol/L (3.4-5.0); Sodium 144 mmol/L (137-145)
--- NOTE | 2020-12-15 12:45 | WPDMODSED ---
Moderate Sedation Note-Pt Data Patient Data Diagnosis: Coronary artery disease with previous PCI to the LAD in 2016 Abnormal stress test done for employ min reasons Present Complaint: No complaints Procedure to be performed/Plan: Left heart catheterization Allergies Allergy/AdvReac Type Severity Reaction Status Date / Time naproxen Allergy Intermediate Rash Verified 12/14/20 14:24 prednisone Allergy Intermediate Difficulty Verified 12/14/20 14:24 Breathing Iodinated Contrast Media Allergy Mild Hives Verified 12/14/20 14:24 MRI DYE Allergy Mild HIVES Uncoded 12/14/20 14:24 Home Medications Medication Instructions Recorded Confirmed Type insulin syringe-needle U-100 1 mL #200 each 01/22/19 11/17/20 Rx 31 gauge x 07/02 aspirin 81 mg tablet,delayed 81 mg PO DAILY 05/28/19 12/15/20 History release blood sugar diagnostic #200 each 02/02/20 11/17/20 Rx blood-glucose meter #1 ea 02/02/20 11/17/20 Rx lancets 33 gauge #200 ea 02/02/20 11/17/20 Rx insulin aspar prot-insulin aspart 80 unit SUBCUT BID 90 Days #144 ml 05/15/20 12/15/20 Rx 100 unit/mL (70-30) subcutaneous pen carvedilol 6.25 mg tablet 6.25 mg PO Q12H #60 tablet 09/07/20 12/15/20 Rx lisinopril 10 mg tablet 10 mg PO DAILY #30 tablet 09/11/20 12/15/20 Rx metformin 1,000 mg tablet 1,000 mg PO BID #180 tablet 12/01/20 12/15/20 Rx atorvastatin 80 mg PO DAILY 12/14/20 12/15/20 History Current Medications: Active Medications Diphenhydramine HCl (Diphenhydramine Hcl Inj 50 Mg/Ml Vial) 50 mg IV PUSH ONCE ONE Stop: 12/15/20 13:01 Sodium Chloride (Normal Saline Iv) 500 mls @ 100 mls/hr IV CONT .Q5H RENAE Methylprednisolone Sodium Succinate (Methylprednisolone Sod Succ 125 Mg Vial) 125 mg IV PUSH ONCE ONE Stop: 12/15/20 13:01 Sedation/Anesthesia: No previous sedation/anesthesia problems (including family history). [facility] Past Medical History Medical History BMI 35.0-35.9,adult Erectile dysfunction Hyperlipidemia Hypertension Hypogonadism, male Insulin dependent type 2 diabetes mellitus Ischemic cardiomyopathy Reported history of ?mild? ischemic cardiomyopathy. No echocardiogram has been done at this facility that I can see. Obstructive sleep apnea Sleep study in July 2018 demonstrated no need for CPAP. ST elevation (STEMI) myocardial infarction involving left anterior descending coronary artery (10/17/16) Status post drug-eluting stent x2 to the LAD, done at [facility]. Stress test in July 2018 was reportedly unremarkable. Surgical History Surgical History Status post carpal tunnel release of both wrists Status post right rotator cuff repair Status post spinal surgery L5 fusion with hardware. Status post tonsillectomy Family History Family History Father Family history of lung cancer Mother Family history of congestive heart failure Sibling Emphysema lung Heart disease Other Diabetes mellitus Hypertension Social History Social History Social History: The patient lives in [place] with his mother. He designates his mother, Arlette, as his surrogate decision maker and he wishes to be a full code. 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 He is a lifelong nonsmoker and denies alcohol and drug abuse. 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
[2020-12-15 13:10] LABS: Glucose Point of Care 85 mg/dl (65-105)
--- NOTE | 2020-12-15 13:27 | WPDCARDPROC ---
Cardiac Cath Procedure Note Date of procedure:: 12/15/20 Performing physician:: Hunter Machado MD Indication:: abnormal stress test coronary disease with previous PCI /mi Brief clinical history:: this is this is a 55-year-old man with a history of myocardial infarction of the anterior wall 5 years ago. At another hospital he underwent emergency PCI with stenting of the LAD. He is doing well since then and does not report any ischemic symptoms. He requires stress testing because of his employment and his stress test was electrocardiographically abnormal prompting the recommendation for a follow-up angiogram. Procedure Procedure performed:: Left ventriculography coronary angiography Angio-Seal to right femoral artery Sedation/Medication given:: fentanyl 50 mg Versed 2 mg case start time 1:09 p.m. case end time 1:26 p.m. sedation provided by Sheryl Moctezuma RN , trained observer Access site:: right femoral artery Estimated blood loss:: 15-20 cc Procedure note:: patient was brought to the cardiac catheterization lab in the postabsorptive state the right femoral triangle was prepared in normal fashion. Anesthesia was provided with 1% lidocaine infiltrated locally. Using the modified Seldinger technique a 5 Iranian sheath was placed into the right common femoral artery after this left heart catheterization was performed. I used a 5 Iranian angled pigtail catheter to document left-sided hemodynamics and to inject LV g in the RAMSEY projection. After this I used a standard 5 Iranian FL4 catheter to engage and inject the left coronary artery and then a 5 Iranian JR4 catheter to engage and inject the right coronary artery. The cineangiograms were then reviewed and the case was terminated. An angiogram was done of the femoral artery through the sheath and then a 6 Iranian Angio-Seal device was deployed in the femoral artery for hemostasis with good results. 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 Findings:: Hemodynamics: Central aortic pressure was 1 38 over 68 left ventricle 138 over 5 end-diastolic pressure 18 there is no significant gradient on pullback across the aortic valve. Left ventricle: The LV is slightly enlarged the mid to apical portion of the anterior wall is moderately hypodynamic the but not akinetic the global ejection fraction is 50-55% by visual estimation the left main coronary artery is nicely patent the left anterior descending is a medium caliber artery extending down to the apex the proximal 1/3 of the LAD has previously been stented there is stent material seen in this segment with no evidence of any loss of lumen. The vessel remains widely patent and angiographically otherwise normal in appearance. There is ARIAS 3 flow down to the apex. The circumflex is a medium caliber artery giving rise to the marginal branches the circumflex is smooth and angiographically normal in appearance the right coronary artery is large in caliber and dominant to the posterior circulation the right coronary artery is angiographically normal and smooth in appearance. Conclusion:: 1. Coronary artery disease with previous anterior wall NE resulting in residual hypocontractility of the mid to apical anterior wall. Global ejection fraction is still within normal range 2. relatively long segment of the proximal LAD that has previously been stented which remains widely patent 3. no significant coronary lesions in the circumflex or RCA 4. false-positive stress test 5. Angio-Seal to right femoral artery Hunter Machado MD [facility]
--- NOTE | 2020-12-15 16:36 | SUR.PHASEII ---
All discharge instructions reviewed with patient. Patient verbalizes understanding of all information received. PIV removed intact and dressing applied. Patient escorted to front of building by staff, where he was picked up by family.
== END 2020-12-15 16:37 | disposition home or self-care (01) ==
PROVIDERS: PCP Family Medicine; Visit Provider Specialist
PROC: 4A023N7 Measurement of Cardiac Sampling and Pressure, Left Heart, Percutaneous Approach (ICD-10-PCS; CPT 93452; principal; 2020-12-15 13:00)
DX: I25.10 Atherosclerotic heart disease of native coronary artery without angina pectoris (principal); I25.2 Old myocardial infarction; Z95.5 Presence of coronary angioplasty implant and graft; I10 Essential (primary) hypertension; E78.5 Hyperlipidemia, unspecified; E11.9 Type 2 diabetes mellitus without complications; Z79.4 Long term (current) use of insulin; G47.33 Obstructive sleep apnea (adult) (pediatric); E66.9 Obesity, unspecified; Z68.35 Body mass index [BMI] 35.0-35.9, adult; Z91.041 Radiographic dye allergy status
CPT/HCPCS: 36415; 80048; 82948; 85025; 93458; C1760; C1887; C1894; G0269; J1200; J1644; J2250; J2930; J3010; J7040

== ENCOUNTER 2021-05-19 07:29 | Outpatient (CLI) | payer OTHER, SELFPAY ==
[2021-05-19 08:07] LABS: Alanine Aminotransferase 32 U/L (4-50); Albumin Level 4.2 g/dL (3.5-5.1); Alkaline Phosphatase 62 U/L (38-126); Anion Gap 5 mmol/L (8-16); Aspartate Amino Transferase 28 U/L (17-59); Bilirubin,Total 0.6 mg/dL (0.2-1.3); Blood Urea Nitrogen 22 mg/dL (9-20); Calcium 8.6 mg/dL (8.4-10.2); Carbon Dioxide 30 mmol/L (22-30); Chloride 103 mmol/L (98-107); Cholesterol 120 mg/dL (0-200); Estimated Glomerular Filt Rate > 60; Glucose 176 mg/dL (65-110); HDL Direct 34 mg/dL; Potassium 4.2 mmol/L (3.4-5.0); Sodium 138 mmol/L (137-145); Triglycerides 71 mg/dL (<150)
[2021-05-19 08:18] LABS: LDL Cholesterol Direct 61 mg/dL
== END 2021-05-19 07:30 | disposition home or self-care (01) ==
LOC: ANHLAB 07:32
PROVIDERS: PCP Family Medicine; Visit Provider Internal Medicine Cardiovascular Disease
DX: E78.5 Hyperlipidemia, unspecified (principal)
CPT/HCPCS: 36415; 80053; 80061

== ENCOUNTER 2021-08-21 21:27 | Emergency (ER) | payer OTHER, SELFPAY ==
[2021-08-21 21:30] VITALS: BP 169/81; PULSE 101; RESP 22; TEMP 36.6; O2SAT 98
[2021-08-21 21:34] LABS: Glucose Point of Care > 500 mg/dl (65-105)
[2021-08-21 22:44] LABS: Basophils Percent Auto 0.4 % (0.2-1.2); Eosinophils Absolute Auto 0.1 K/mm3 (0-0.3); Hematocrit 46.8 % (42.0-52.0); Hemoglobin 16.3 g/dL (14.0-18.0); Immature Granulocyte Absolute 0.02 K/mm3 (0.00-0.031); Immature Granulocyte Percent A 0.3 % (0-0.5); Lymphocytes Absolute Auto 1.48 K/mm3 (0.9-3.2); Lymphocytes Percent Auto 20.8 % (18.3-44.2); Mean Corpuscular HGB Conc 34.8 g/dl (32-36); Mean Corpuscular Hemoglobin 30.2 pg (26-34); Mean Corpuscular Volume 86.7 fl (80-100); Mean Platelet Volume 10.8 fl (7.4-10.4); Monocytes Absolute Auto 0.6 K/mm3 (0.1-0.6); Monocytes Percent Auto 8.4 % (2.6-8.5); Neutrophils Absolute Auto 4.9 K/mm3 (1.3-6.7); Neutrophils Percent Auto 69.1 % (45.5-73.1); Platelet Count Result 217 k/mm3 (150-375); Red Cell Distribution Width 12.4 % (11.5-14.5); White Blood Count 7.1 K/mm3 (4.5-10.0)
[2021-08-21 23:01] LABS: Beta-Hydroxybutyrate/Acetoacetate 1.82 mmol/L (0.02-0.27)
[2021-08-21 23:18] LABS: Alanine Aminotransferase 32 U/L (6-50); Albumin Level 4.8 g/dL (3.5-5.1); Alkaline Phosphatase 107 U/L (38-126); Anion Gap 10 mmol/L (8-16); Aspartate Amino Transferase 24 U/L (17-59); Bilirubin,Total 0.8 mg/dL (0.2-1.3); Blood Urea Nitrogen 27 mg/dL (9-20); Calcium 8.8 mg/dL (8.4-10.2); Carbon Dioxide 25 mmol/L (22-30); Chloride 94 mmol/L (98-107); Estimated CRCL calculation 90 ml/min; Estimated Glomerular Filt Rate > 60; Glucose 563 mg/dL (65-110); Phosphorus 3.4 mg/dL (2.5-4.5); Potassium 4.9 mmol/L (3.4-5.0); Sodium 129 mmol/L (137-145)
[2021-08-21 23:27] LABS: Magnesium 1.7 mg/dL (1.6-2.3)
[2021-08-21 23:49] LABS: Appearance Urine Clear (Clear); Bilirubin Urine Negative (Negative); Glucose Urine UA 3+ mg/dL (Negative); Ketones Urine 2+ mg/dL (Negative); Leukocyte Esterase Ur Negative LEU/UL (Negative); Nitrate Urine Negative (Negative); Protein Urine Negative (Negative); Specific Grav Ur <= 1.005 (1.001-1.035); Urobilinogen Urine 0.2 mg/dL (<2.0)
[2021-08-21 23:50] LABS: Mucus Urine Rare /lpf; RBC Urine 0-2 /hpf (0-2); WBC Urine 0-3 /hpf
[2021-08-21] MEDS: INSULIN HUMAN REGULAR (*BKC) 100 UNITS/ML 10 UNITS IV PUSH (23:50)
[2021-08-21] MEDS: SODIUM CHLORIDE 0.9% IV 1,000 ML 999 ML IV CONT (23:50)
[2021-08-21 23:54] LABS: Add Urine Microscopic? YES; Blood Urine Trace (Negative); Color Urine Light Yellow (Yellow)
--- NOTE | 2021-08-22 00:09 | ED.GENADULT ---
HPI - General Adult General Chief complaint: Recheck/Abnormal Lab/Rx Stated complaint: off insulin since friday Time Seen by Provider: 08/21/21 22:55 History of Present Illness HPI narrative: 56-year-old male with history of insulin-dependent diabetes presented to the emergency department for evaluation of hyperglycemia. Patient states over the course of the last week and a half he has been completely out of his insulin. Patient had issues with his insurance last month and was given a sample by the primary care physician. Patient states for the last week and a half he has been out of his insulin completely. Patient has been taking his metformin. Over the last few days patient's blood glucose has continued to climb. Tonight his blood sugar read as 600 so he presented to the emergency department for evaluation. Patient does report increased urination and increased dry mouth. Patient does have some associated nausea. Patient denies any chest pain or shortness of breath. Related Data Home Medications Medication Instructions Recorded Confirmed aspirin 81 mg tablet,delayed 81 mg PO DAILY 05/28/19 07/18/21 release Allergies Allergy/AdvReac Type Severity Reaction Status Date / Time naproxen Allergy Intermediate Rash Verified 08/21/21 21:37 prednisone Allergy Intermediate Difficulty Verified 08/21/21 21:37 Breathing Iodinated Contrast Media Allergy Mild Hives Verified 08/21/21 21:37 MRI DYE Allergy Mild HIVES Uncoded 08/21/21 21:37 Review of Systems Review of Systems: CONSTITUTIONAL: Generalized fatigue EYES: Denies visual changes, redness, or discharge. ENT: Denies rhinorrhea, congestion, sore throat, or otalgia. CARDIOVASCULAR: Denies chest pain, palpitations, or edema. RESPIRATORY: Denies cough or dyspnea. GASTROINTESTINAL: Nausea vomiting GENITOURINARY: Increased urination SKIN: Denies rash or itching. MUSCULOSKELETAL: Denies back pain, joint pain, or myalgia. NEUROLOGIC: Denies headache, numbness, or weakness. PSYCHIATRIC: Denies anxiety or depression. [facility] Past Medical History Medical History (Updated 08/22/21 @ 03:14 by Félix Real MD) Coronary artery disease Erectile dysfunction Hyperlipidemia Hypertension Hypogonadism, male Hyponatremia Insulin dependent type 2 diabetes mellitus Ischemic cardiomyopathy Reported history of ?mild? ischemic cardiomyopathy. No echocardiogram has been done at this facility that I can see. Obesity Obstructive sleep apnea Sleep study in July 2018 demonstrated no need for CPAP. Positive Juvencio test of left knee Retinopathy ST elevation (STEMI) myocardial infarction involving left anterior descending coronary artery (10/17/16) Status post drug-eluting stent x2 to the LAD, done at [facility]. Stress test in July 2018 was reportedly unremarkable. Uncontrolled type 2 diabetes mellitus with hyperglycemia, with long-term current use of insulin Surgical History Surgical History Hx of heart artery stent 2016, CAD + drug eluting stent x2 to LAD Status post carpal tunnel release of both wrists Status post right rotator cuff repair Status post spinal surgery L5 fusion with hardware. Status post tonsillectomy Family History Family History Father Family history of lung cancer Mother Family history of congestive heart failure Sibling Emphysema lung Heart disease Other Diabetes mellitus Hypertension Social History Social History Social History: The patient lives in [place] with his mother. He designates his mother, Arlette, as his surrogate decision maker and he wishes to be a full code. 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 He is a lifelong nonsmoker and denies alcohol and drug abuse. Smoking status: Never smoker Alcohol inta
[2021-08-22 01:23] LABS: Glucose Point of Care 408 mg/dl (65-105)
[2021-08-22] MEDS: INSULIN HUMAN NPH (*BKC) 100 UNITS/ML 10 UNITS SUB-Q (01:43)
[2021-08-22] MEDS: SODIUM CHLORIDE 0.9% IV 1,000 ML 999 ML IV CONT (01:46)
[2021-08-22 03:09] LABS: Glucose Point of Care 271 mg/dl (65-105)
[2021-08-22 03:27] VITALS: BP 146/98; PULSE 66; RESP 18; O2SAT 99
[2021-08-22 03:28] VITALS: BP 146/98; PULSE 66; RESP 18; O2SAT 99
== END 2021-08-22 03:30 | disposition home or self-care (01) ==
PROVIDERS: Emergency Provider Emergency Medicine; PCP Family Medicine
DX: E11.65 Type 2 diabetes mellitus with hyperglycemia (principal); I25.10 Atherosclerotic heart disease of native coronary artery without angina pectoris; E78.5 Hyperlipidemia, unspecified; I10 Essential (primary) hypertension; I25.5 Ischemic cardiomyopathy; G47.33 Obstructive sleep apnea (adult) (pediatric); I25.2 Old myocardial infarction; Z95.5 Presence of coronary angioplasty implant and graft; Z98.1 Arthrodesis status; Z79.82 Long term (current) use of aspirin; Z79.4 Long term (current) use of insulin; Z79.899 Other long term (current) drug therapy; Z79.84 Long term (current) use of oral hypoglycemic drugs
CPT/HCPCS: 36415; 80053; 81001; 82010; 82948; 83735; 84100; 85025; 96361; 96374; 99284; J1815; J7030

== ENCOUNTER 2021-09-13 13:46 | Outpatient (CLI) | payer OTHER, SELFPAY ==
[2021-09-13 14:21] LABS: Alanine Aminotransferase 29 U/L (6-50); Albumin Level 4.6 g/dL (3.5-5.1); Alkaline Phosphatase 74 U/L (38-126); Aspartate Amino Transferase 21 U/L (17-59); Bilirubin,Total 0.5 mg/dL (0.2-1.3)
== END 2021-09-13 13:47 | disposition home or self-care (01) ==
LOC: ANHLAB 13:47
PROVIDERS: PCP Family Medicine; Visit Provider Nurse Practitioner Family
DX: B35.1 Tinea unguium (principal)
CPT/HCPCS: 36415; 80076

== ENCOUNTER 2021-09-14 12:34 | Outpatient (CLI) | payer OTHER, SELFPAY ==
--- NOTE | ~2021-09-14 | MR_ITS ---
EXAMINATION: MR knee LT wo con DATE: 09/14/2021 13:33 INDICATION: Left knee pain, swelling and instability post fall 3 months prior. TECHNIQUE: Magnetic resonance imaging (MRI) of the left knee was performed without intravenous contra st. Sequences included coronal PD-weighted FSE, coronal PD-weighted FS FSE, sagittal T2-weighted FSE , sagittal PD-weighted FS FSE and axial PD weighted fat saturated FSE. COMPARISON: None. FINDINGS: Medial compartment: Additional horizontal tear extending to the inferior articular surface along the inner third of the p osterior horn and posterior body of the medial meniscus. 11 x 8 mm full/near full-thickness chondral defect without degenerative subchondral changes at the posterior weightbearing medial femoral condyle . Remaining cartilage appears relatively preserved. Lateral compartment: Lateral meniscus is normal. Articular cartilage is normal. Patellofemoral compartment: Articular cartilage is normal. Ligaments and tendons: Anterior and posterior cruciate ligaments are normal. The medial collateral ligament and fibular pedro ateral ligament complex are normal. The extensor mechanism is normal. The visualized medial and later al hamstring tendons as well as the iliotibial band are normal. Fluid: Minimal knee joint effusion at the suprapatellar pouch. No loose osteochondral bodies identified. Mil d prepatellar soft tissue swelling without discrete bursal fluid collection. Osseous/other: There are couple small low signal intensity bone islands at the medial tibial plateau and medial femo ral condyle. Bone marrow signal is otherwise normal. No fracture or pathologic marrow replacing proce ss. IMPRESSION: 1. Longitudinal horizontal tear of the posterior body and posterior horn of the medial meniscus. 2. 11 x 8 mm full/near full-thickness chondral defect at the posterior weightbearing medial femoral c ondyle. Reviewed, dictated and finalized at location A. IMPRESSION: 1. Longitudinal horizontal tear of the posterior body and posterior horn of the medial meniscus. 2. 11 x 8 mm full/near full-thickness chondral defect at the posterior weightbe aring medial femoral condyle.
== END 2021-09-14 12:35 | disposition home or self-care (01) ==
PROVIDERS: PCP Family Medicine; Visit Provider Nurse Practitioner Family
DX: S89.90XA Unspecified injury of unspecified lower leg, initial encounter (principal); S83.242A Other tear of medial meniscus, current injury, left knee, initial encounter
CPT/HCPCS: 73721

== ENCOUNTER 2021-11-13 10:00 | Outpatient (RCR) | payer OTHER, SELFPAY ==
--- NOTE | 2021-10-16 14:17 | PTOPEVAL1 ---
Evaluation Information Assessment Status Evaluation Diagnosis L knee pain Onset 4 months ago Subjective Information Pt states he fell 4 months and per patient and knee MRI partially tore his meniscus and has a near full thickness chondral defect. Pt ambulates into the clinic today with the use of a single pain cane held in his LUE. He also has a off the shelf knee brace donned. He did not use the cane or the brace prior to his fall. Reported Pain Level Pain Score 5: Self Report Assessment PT Clinical Summary Hunter presents to therapy today for his initial evaluation with a diagnosis of L knee pain with a medial meniscus and a near full thickness chondral defect. Today he demonstrates decreased active and passive ROM and decreased strength when compared to his uninvolved side. He also demonstrates deviations during gait and with stairs ambulation. He demonstrates a lateral weight shift during sit <>stand transfers. Skilled physical therapy services are indicated to address the deficts noted above, for pain management, to improve mobility, and to return to baseline funciton. Plan of Care Interventions Electrical Stimulation,Gait Training,Hot Pack/Cold Pack,Manual Therapy,Neuro Re-education,Patient/ Caregiver Educati,Therapeutic Activities, Therapeutic Exercise PT Services Indicated Yes Treatment Frequency and 2x/wk for 4 wks or until goals are met Duration These treatments will address the objective and functional deficits as defined above. The patient will be advanced safely and appropriately in order for the patient to progress towards his/her prior level of function. Additional exercises will be introduced and as well as a comprehensive home exercise program upon discharge, if needed, ?to ensure carryover of functional gains achieved in the clinic. This treatment plan has been reviewed and agreement upon by the patient.
--- NOTE | 2021-11-13 10:55 | PTOPDC ---
Assessment and note entered by Ignacio Salgado, PT, DPT Evaluation Information Assessment Status Progress Diagnosis L knee pain Onset 4 months ago Subjective Information Pt states he has good days and bad days. He did laundry this morning so went up/down his basement stairs twice, so his knee is really bothering him this morning. He states his knee feels better but he still has pain and has difficulty with max flexion, this is needed to get in/out of his trunk . Pt reports 70% improvement in overall symptoms. Reported Pain Level Pain Score 5: Self Report Assessment PT Clinical Summary Hunter presents to therapy today for his progress report following 7 visits of skilled therapy to treat his L knee pain. Today he reports 75% improvement in overall symptoms. He continues to demonstrate poor knee ROM, actively today was 86 deg and passive was 100. Both ROMs are limited by pain before resistance. His strength is also limited by pain. He is now ambulatory without the need for an AD and he demonstrates an improved gait speed. He continues to ambulate with an antalgic pattern and requires BUE support to ascend stairs. While continuation of skilled therapy services are indicated, the patient is concerned about insurance coverage and would not like to continue therapy at this time. It was recommended that he follow up with his referring provider regarding his minimal objective improvements with therapy. Hunter will be discharged from skilled therapy services at this time. Plan of Care PT Services Indicated No Treatment Frequency and to be d/c'ed Duration
== END 2021-11-20 10:01 | disposition home or self-care (01) ==
LOC: ANHPT 10:00
PROVIDERS: PCP Family Medicine
DX: M17.12 Unilateral primary osteoarthritis, left knee (principal)
CPT/HCPCS: 97014; 97035; 97110; 97116; 97140; 97161; 97530; G0283

== ENCOUNTER 2021-12-14 07:07 | Outpatient (CLI) | payer OTHER, SELFPAY ==
[2021-12-14 08:12] LABS: Alanine Aminotransferase 24 U/L (6-50); Albumin Level 4.3 g/dL (3.5-5.1); Alkaline Phosphatase 71 U/L (38-126); Aspartate Amino Transferase 19 U/L (17-59); Bilirubin,Total 0.6 mg/dL (0.2-1.3)
== END 2021-12-14 07:08 | disposition home or self-care (01) ==
LOC: ANHLAB 07:08
PROVIDERS: PCP Family Medicine; Visit Provider Nurse Practitioner Family
DX: B35.1 Tinea unguium (principal)
CPT/HCPCS: 36415; 80076

== ENCOUNTER 2021-12-21 06:49 | Outpatient (CLI) | payer OTHER, SELFPAY ==
[2021-12-21 08:12] LABS: Hematocrit 45.9 % (42.0-52.0); Hemoglobin 14.8 g/dL (14.0-18.0); Mean Corpuscular HGB Conc 32.2 g/dl (32-36); Mean Corpuscular Hemoglobin 29.6 pg (26-34); Mean Corpuscular Volume 91.8 fl (80-100); Mean Platelet Volume 11.3 fl (7.4-10.4); Platelet Count Result 201 k/mm3 (150-375); Red Cell Distribution Width 12.6 % (11.5-14.5); White Blood Count 7.1 K/mm3 (4.5-10.0)
[2021-12-21 08:25] LABS: Alanine Aminotransferase 23 U/L (6-50); Albumin Level 4.5 g/dL (3.5-5.1); Alkaline Phosphatase 75 U/L (38-126); Anion Gap 10 mmol/L (8-16); Aspartate Amino Transferase 21 U/L (17-59); Bilirubin,Total 0.6 mg/dL (0.2-1.3); Blood Urea Nitrogen 27 mg/dL (9-20); Calcium 8.7 mg/dL (8.4-10.2); Carbon Dioxide 26 mmol/L (22-30); Chloride 105 mmol/L (98-107); Cholesterol 138 mg/dL (0-200); Estimated Glomerular Filt Rate > 60; Glucose 99 mg/dL (65-110); HDL Direct 37 mg/dL; Potassium 3.8 mmol/L (3.4-5.0); Sodium 141 mmol/L (137-145); Triglycerides 93 mg/dL (<150)
[2021-12-21 08:37] LABS: LDL Cholesterol Direct 71 mg/dL
[2021-12-21 08:56] LABS: Prostate Specific Antigen 0.7 ng/mL (< OR = 4.0)
[2021-12-21 10:06] LABS: Creatinine Urine 155.3 mg/dL
[2021-12-21 10:08] LABS: MALB Creatinine Ratio 63.7 mg/g (0-30)
== END 2021-12-21 06:50 | disposition home or self-care (01) ==
LOC: ANHLAB 06:50
PROVIDERS: PCP Family Medicine; Visit Provider Nurse Practitioner Family
DX: E11.65 Type 2 diabetes mellitus with hyperglycemia (principal); Z79.4 Long term (current) use of insulin; E66.9 Obesity, unspecified; I25.10 Atherosclerotic heart disease of native coronary artery without angina pectoris; R79.89 Other specified abnormal findings of blood chemistry; Z12.5 Encounter for screening for malignant neoplasm of prostate; I10 Essential (primary) hypertension
CPT/HCPCS: 36415; 80053; 80061; 82043; 84153; 84443; 85027; G0103

== ENCOUNTER 2022-01-19 07:04 | Outpatient (CLI) | payer OTHER, SELFPAY ==
[2022-01-19 08:11] LABS: T4 Thyroxine 7.25 ug/dL (5.53-11.0)
== END 2022-01-19 07:05 | disposition home or self-care (01) ==
LOC: ANHLAB 07:05
PROVIDERS: PCP Family Medicine; Visit Provider Nurse Practitioner Family
DX: R79.89 Other specified abnormal findings of blood chemistry (principal)
CPT/HCPCS: 36415; 84436; 84443

== ENCOUNTER 2022-03-02 06:41 | Outpatient (CLI) | payer OTHER, SELFPAY ==
[2022-03-02 08:43] LABS: T4 Thyroxine 8.31 ug/dL (5.53-11.0)
== END 2022-03-02 06:42 | disposition home or self-care (01) ==
LOC: ANHLAB 06:42
PROVIDERS: PCP Family Medicine; Visit Provider Nurse Practitioner Family
DX: E03.9 Hypothyroidism, unspecified (principal)
CPT/HCPCS: 36415; 84436; 84443

== ENCOUNTER 2022-03-06 16:45 | Observation (INO) | payer OTHER, SELFPAY ==
[2022-03-06] VITALS (50 sets, daily range): BP systolic 130–186; BP diastolic 46–147; PULSE 64–85; RESP 6–25; TEMP 36.4; O2SAT 90–99
--- NOTE | ~2022-03-06 | XR_ITS ---
EXAMINATION: XR chest 2V DATE: 03/06/2022 18:07 INDICATION: Shortness of breath. TECHNIQUE: Frontal and lateral views of the chest were obtained. COMPARISON: Chest 2 views 05/07/2019 FINDINGS: There is mild elevation of right hemidiaphragm. No pleural effusion or pneumothorax. Cardio megaly is noted. There is a suture anchor in right humeral head. IMPRESSION: 1. Cardiomegaly. Reviewed, dictated and finalized at location A. KING MACHINE OPERATOR IMPRESSION: 1. Cardiomegaly.
--- NOTE | ~2022-03-06 | NM_ITS ---
EXAMINATION: NM pulmonary perfusion DATE: 03/06/2022 21:51 INDICATION: Shortness of breath with exertion. TECHNIQUE: 5.31 mCi Tc-99m MAA was administered intravenously for perfusion images. Scintigraphic im ages of the chest were obtained. COMPARISON: Chest 2 views 03/06/2022 FINDINGS: Perfusion images show small defects in the lower lobes and left upper lobe. IMPRESSION: 1. Pulmonary embolism absent (low probability). Reviewed, dictated and finalized at location A. [facility]
--- NOTE | 2022-03-06 16:51 | ECG_ITS ---
Measurements Intervals [place] Rate: 74 P: 32 UT: 166 QRS: 49 QRSD: 90 T: 32 QT: 329 QTc: 367 Interpretive Statements SINUS RHYTHM LOW QRS VOLTAGE IN PRECORDIAL LEADS ANTEROSEPTAL INFARCT, AGE INDETERMINATE BASELINE WANDER- II, III, AVR, AVF, V1-V2 ABNORMAL ECG COMPARED TO ECG 05/07/2019 11:47:16 SINUS RHYTHM NOW PRESENT Electronically Signed On 03-06-2022 19:18:09 CAN FILLING MACHINE OPERATOR by Biju Keys D.O.
[2022-03-06 17:14] LABS: Basophils Percent Auto 0.4 % (0.2-1.2); Eosinophils Absolute Auto 0.1 K/mm3 (0-0.3); Eosinophils Percent Auto 1.7 % (0-4.4); Hematocrit 44.3 % (42.0-52.0); Hemoglobin 14.2 g/dL (14.0-18.0); Immature Granulocyte Absolute 0.02 K/mm3 (0.00-0.031); Immature Granulocyte Percent A 0.3 % (0-0.5); Lymphocytes Absolute Auto 1.86 K/mm3 (0.9-3.2); Lymphocytes Percent Auto 23.9 % (18.3-44.2); Mean Corpuscular HGB Conc 32.1 g/dl (32-36); Mean Corpuscular Hemoglobin 29.7 pg (26-34); Mean Corpuscular Volume 92.7 fl (80-100); Mean Platelet Volume 10.4 fl (7.4-10.4); Monocytes Absolute Auto 0.6 K/mm3 (0.1-0.6); Monocytes Percent Auto 7.3 % (2.6-8.5); Neutrophils Absolute Auto 5.2 K/mm3 (1.3-6.7); Neutrophils Percent Auto 66.4 % (45.5-73.1); Platelet Count Result 193 k/mm3 (150-375); Red Blood Count 4.78 M/mm3 (4.6-6.20); Red Cell Distribution Width 12.4 % (11.5-14.5); White Blood Count 7.8 K/mm3 (4.5-10.0)
[2022-03-06 17:26] LABS: Alanine Aminotransferase 23 U/L (6-50); Albumin Level 4.1 g/dL (3.5-5.1); Alkaline Phosphatase 60 U/L (38-126); Anion Gap 7 mmol/L (8-16); Aspartate Amino Transferase 21 U/L (17-59); Bilirubin,Total 0.4 mg/dL (0.2-1.3); Blood Urea Nitrogen 18 mg/dL (9-20); Calcium 8.4 mg/dL (8.4-10.2); Carbon Dioxide 29 mmol/L (22-30); Chloride 107 mmol/L (98-107); Estimated CRCL calculation 101 ml/min; Estimated Glomerular Filt Rate > 60; Glucose 151 mg/dL (65-110); Potassium 3.6 mmol/L (3.4-5.0); Sodium 143 mmol/L (137-145)
--- NOTE | 2022-03-06 17:55 | PC.NURSE ---
Patient off unit to radiology.
--- NOTE | 2022-03-06 19:13 | PC.NURSE ---
Patient report given to NESTOR Cole. All questions answered and care of patient transferred.
--- NOTE | 2022-03-06 19:32 | ED.SOB ---
HPI - SOB/Dyspnea General Chief Complaint: Shortness of Breath/Dyspnea Stated Complaint: shortness of breath Time Seen by Provider: 03/06/22 18:41 Source: patient Mode of arrival: ambulatory Limitations: no limitations History of Present Illness HPI Narrative: Patient is a 56-year-old male who presents to the ED with report of shortness of breath. Patient reports he began feeling short of breath with exertion on Friday while at work. He states he just felt very winded and it took him a few minutes to catch his breath. He has felt short of breath since then, only when exerting himself. Denies shortness of breath with rest. States he felt fine last week. He denies any chest pain, acid reflux type symptoms, lower extremity pain or swelling, recent long distance travel, Hx of blood clots. He does have history of CAD status post [facility] in 2015 with 2 cardiac stents. He sees Dr. Keys every 6 months. Patient has had a persistent dry cough over the last couple of months, denies recent worsening, congestion, fevers, abdominal pain, nausea, vomiting. Related Data Home Medications Medication Instructions Recorded Confirmed aspirin 81 mg tablet,delayed 81 mg PO DAILY 05/28/19 03/07/22 release celecoxib 100 mg capsule (Celebrex) 100 mg PO BID 11/15/21 03/07/22 blood sugar diagnostic ([facility] 03/07/22 03/07/22 Verio test strips) blood-glucose meter ([facility] 03/07/22 03/07/22 Verio Flex Meter) insulin syringe-needle U-100 1 mL 03/07/22 03/07/22 31 gauge x 5/16 (BD Insulin Syringe Ultra-Fine) [facility] 03/07/22 Lancets) metformin 1,000 mg tablet 1,000 mg PO BID 03/07/22 03/07/22 pen needle, diabetic 31 gauge x 03/07/22 03/07/22 3/16 (BD Ultra-Fine Mini Pen Needle) Allergies Allergy/AdvReac Type Severity Reaction Status Date / Time naproxen Allergy Intermediate Rash Verified 12/20/21 15:59 prednisone Allergy Intermediate Difficulty Verified 12/20/21 15:59 Breathing Iodinated Contrast Media Allergy Mild Hives Verified 12/20/21 15:59 MRI DYE Allergy Mild HIVES Uncoded 12/20/21 15:59 Review of Systems Review of Systems: CONSTITUTIONAL: Denies fever, chills, or sweats. ENT: Denies rhinorrhea, congestion, sore throat. CARDIOVASCULAR: See HPI. RESPIRATORY: See HPI. GASTROINTESTINAL: Denies abdominal pain, nausea, vomiting, or diarrhea. GENITOURINARY: Denies dysuria or hematuria. 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 ischemic cardiomyopathy. No echocardiogram has been done at this facility that I can see. Obesity Obstructive sleep apnea Sleep study in July 2018 demonstrated no need for CPAP. Positive Juvencio test of left knee Radiodense bone lesion present on x-ray Retinopathy ST elevation (STEMI) myocardial infarction involving left anterior descending coronary artery (10/17/16) Status post drug-eluting stent x2 to the LAD, done at [facility]. Stress test in July 2018 was reportedly unremarkable. Type 2 diabetes mellitus with hyperglycemia Uncontrolled type 2 diabetes mellitus with hyperglycemia, with long-term current use of insulin Surgical History Surgical History Hx of heart artery stent 2016, CAD + drug eluting stent x2 to LAD Status post carpal tunnel release of both wrists Status post right rotator cuff repair Status post spinal surgery L5 fusion with hardware. Status post tonsillectomy
[2022-03-06 20:21] LABS: NT Pro B Type Natriuretic Pept 156 pg/mL (19.9-100); Troponin I < 0.012 ng/mL (0.000-0.034)
[2022-03-06 20:23] LABS: D Dimer 0.53 ug/mL (<0.48)
[2022-03-06 20:49] LABS: Influenza A QL RT-PCR Negative (Negative); Influenza B QL RT-PCR Negative (Negative); SARS-CoV-2 RNA PCR Negative
[2022-03-06 23:00] LABS: Troponin I < 0.012 ng/mL (0.000-0.034)
[2022-03-07] VITALS (15 sets, daily range): BP systolic 108–148; BP diastolic 47–74; PULSE 62–93; RESP 18–38; TEMP 36–36.7; O2SAT 92–98; BMI 40.4
--- NOTE | 2022-03-07 | ECHO_ITS ---
Patient Info Name: Hunter Chandler Age: 56 years : 1965 Gender: Male Ht: 67 in Wt: 260 lbs BSA: 2.42 m2 HR: 70 bpm BP: 148 / 74 mmHg Technical Quality: Fair Exam Date: 03/07/2022 1:18 PM Exam Location: [facility] Pulmonary Exam Room: [facility] Patient Status: Inpatient Admit Date: 03/06/2022 Staff Ordering Physician: Alicia Jean PA-C Esl Instructional Assistant: Negra Recio RDCS Attending Provider: Darcie Ewing PA-C Referring Physician: Ted EGAN; Exam Type: CA echo dop color flow w con Study Info Indications - CATHERINE HX/O CAD Complete two-dimensional, color flow and Doppler transthoracic echocardiogram is performed with contrast to opacify the left ventricle and to improve the deliniation of the left ventricle endocardial borders. Contrast/Agitated Saline Contrast/Ag. Saline: Definity Amount: 2.00 ml Administered By: Negra Recio [facility] Existing IV Access: Yes IV Access Condition: patent with no signs of infiltration Summary 1. Left ventricular chamber dimension is normal. 2. Definity contrast administered improved wall motion interpretation. 3. Left ventricular systolic function is normal, estimated at 55-60%. 4. There is mildly increased left ventricular wall thickness. 5. The left ventricular diastolic function is grade I diastolic dysfunction. 6. E/e' 14 is mildly elevated. 7. No pulmonary hypertension, estimated pulmonary arterial systolic pressure is 24 mmHg. 8. There is trivial pericardial effusion. Left Ventricle E/e' 14 is mildly elevated. Definity contrast administered improved wall motion interpretation. Left ventricular chamber dimension is normal. Left ventricular systolic function is normal, estimated at 55-60%. There is mildly increased left ventricular wall thickness. The left ventricular diastolic function is grade I diastolic dysfunction. Right Ventricle Right ventricular chamber dimension is normal. Right ventricular systolic function is normal. Left Atria Left atrial chamber dimension is normal. Right Atria Right atrial chamber dimension is normal. Aortic Valve The aortic valve is trileaflet. There is no aortic valve stenosis. There is no aortic valve regurgitation. Pulmonic Valve There is no pulmonic regurgitation. Mitral Valve There is no mitral valve stenosis. There is no mitral valve regurgitation. Tricuspid Valve There is no tricuspid valve regurgitation. No pulmonary hypertension, estimated pulmonary arterial systolic pressure is 24 mmHg. Pericardium/Pleural There is trivial pericardial effusion. Inferior Vena Cava Normal inferior vena cava with >50% collapse upon inspiration consistent with normal right atrial pressure, 5 mmHg. Aorta The aortic root size at the sinus of Valsalva is normal. Left Ventricular Outflow Tract Name Value Normal LVOT 2D LVOT Diameter 2.07 cm LVOT Doppler LVOT Peak Gradient 7 mmHg LVOT Mean Gradient 4 mmHg LVOT VTI 26.35 cm LVOT VTI/AV VTI Rati
[2022-03-07] MEDS: FUROSEMIDE INJ 40 MG/4 ML VIAL 20 MG IV PUSH (00:26)
--- NOTE | 2022-03-07 03:27 | PM.IMHP ---
H&P: HPI History of Present Illness Date/Time: 03/07/22 00:10 Chief Complaint: Shortness of breath with activity Narrative: 56-year-old male with a past medical history of ischemic cardiomyopathy with preserved ejection fraction, coronary disease status post 2 stents, essential hypertension, type 2 diabetes mellitus, and morbid obesity presented to the ER with dyspnea on exertion. 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 Since that time he has noticed any time he exerts himself he becomes short of breath. In the ER and ambulatory pulse ox was performed the patient was found to be dropping to 88% on room air with activity. He denies any chest pain or palpitations. He has not had any lower extremity swelling edema or calf pain. 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 He follows with Dr. Keys from Cardiology and he thinks he has a follow-up appointment in April. He had a sleep study several years ago that was negative but since the time of that sleep study the patient reports that he has had significant weight gain. He was started on insulin for his diabetes and approximately 2018 and since that time his weight has progressively climbed. He denies any orthopnea or paroxysmal nocturnal dyspnea. He denies excessive daytime fatigue but his son has told him that he does snore. he had what he reports as cold symptoms 2 or 3 months ago insists that time he has been having a dry cough. The cough is worse when he goes in and out of different environments or into cold temperatures. He has not contacted his primary care provider regarding these complaints. The cough is relieved with cough drops. It is nonproductive. He denies any hoarseness, nasal congestion rhinorrhea or sore throat. He denies any hematochezia or melena. He has been having normal bowel movements but failed to have his screening colonoscopy 2 years ago. It sounds as if he does have peripheral neuropathy in his hands and feet but denies a specific diagnosis of diabetic neuropathy. It sounds as if in the past he has been told that he has some hemorrhages behind his eyes that seeing consistent with diabetic retinopathy but he denies a known diagnosis of this. He reports that he has been compliant with his home medications. His glucoses at home have been running in the 120-160 range. He reports his last hemoglobin A1c which was several months ago was around 9 but he had been out of his insulin for some time prior to that lab being drawn. in the ER his D-dimer was minimally elevated. He had a V/Q scan that was unremarkable. Chest x-ray was negative. EKG was sinus rhythm with anterior septal infarct age indeterminate adjust similar to prior EKG From 2019. patient had cardiac cardiac catheterization November 2020 due to a false-positive stress test. Cardiac catheterization demonstrated residual hypocontractility of the mid and apical anterior wall but preserved ejection fraction with proximal LAD that was stented which remained widely patent. Review of Systems Review of Systems: 12 systems were reviewed with pertinent positives and negatives per HPI. Except as documented in the HPI, all other systems were reviewed and are negative. [facility] Past Medical History Medical History (Updated 03/07/22 @ 04:24 by Kaylee Conroy, ) BMI greater than 40 Coronary artery disease Diabetic neuropathy Diabetic retinopathy Diastolic dysfunction echocardiogram January 2018: Mild left ventricular hypertrophy, diastolic dysfunction present, increased left heart filling pressure based on ED EF 60% trace [id number] intra-arterial shunt by color Doppler suggestive of atrial septal defect, normal right ventricular systolic pressures RVSP 29 Erectile dysfunction Hyperlipidemia Hypertension Hypogonadism, male Hypothyroid Insulin dependent type
[2022-03-07] MEDS: LEVOTHYROXINE SODIUM 25 MCG TABLET PO (06:39)
[2022-03-07 06:49] LABS: Anion Gap 8 mmol/L (8-16); Blood Urea Nitrogen 16 mg/dL (9-20); Calcium 8.8 mg/dL (8.4-10.2); Carbon Dioxide 32 mmol/L (22-30); Chloride 103 mmol/L (98-107); Estimated CRCL calculation 101 ml/min; Estimated Glomerular Filt Rate > 60; Glucose 126 mg/dL (65-110); Potassium 3.9 mmol/L (3.4-5.0); Sodium 143 mmol/L (137-145)
[2022-03-07 08:47] LABS: Glucose Point of Care 139 mg/dl (65-105)
[2022-03-07] MEDS: ASPIRIN 81 MG ENTERIC TABLET PO (08:49)
[2022-03-07] MEDS: ATORVASTATIN 40 MG TABLET 80 MG PO (08:49)
[2022-03-07] MEDS: CELECOXIB 100 MG CAPSULE PO ×2 (08:50→17:18)
[2022-03-07] MEDS: lisinopriL 10 MG TABLET PO (08:50)
[2022-03-07] MEDS: carvediloL 25 MG TABLET PO ×2 (08:50→20:22)
[2022-03-07] MEDS: metFORMIN HCL 500 MG TABLET 1000 MG PO ×2 (08:50→17:18)
[2022-03-07] MEDS: ENOXAPARIN 40 MG/0.4 ML SYRINGE SUB-Q (08:55)
--- NOTE | 2022-03-07 09:56 | PM.IMPN ---
Progress Note: A&P Assessment and Plan (1) Dyspnea on exertion: Code(s): R06.09 - Other forms of dyspnea Status: Acute (2) Hypoxia: Code(s): R09.02 - Hypoxemia Status: Acute (3) Ischemic cardiomyopathy: Code(s): I25.5 - Ischemic cardiomyopathy Status: Acute (4) Diastolic dysfunction: Code(s): I51.89 - Other ill-defined heart diseases Status: Acute Plan Patient is having dyspnea on exertion with associated hypoxia with exertion. This could be due to diastolic dysfunction and or the patient's ischemic cardiomyopathy causing some component of heart failure although chest x-ray does not demonstrate obvious heart failure and BNP is relatively normal. V/Q scan ruled out pulmonary embolism and D-dimer was borderline for age corrected adjustments. Patient is not having lower extremity symptoms that was suggest DVT with associated pulmonary embolism. He has IV contrast allergy so CTA was not performed. Given the patient is having some mild nonproductive cough he could have an underlying pneumonia that cannot be seen on x-ray however he does not have white count, fever, or URI symptoms to suggest acute infection. Patient was given 1 dose of IV Lasix. Echocardiogram ordered to further evaluate his cardiac structure and function. His symptoms could also be due to hypoxia from obesity hypoventilation with activity exacerbating his symptoms. The patient has chronically uncontrolled type 2 diabetes with last A1c of 8.19 December 2021. Resumed the patient's home 70/ 30 insulin and will add Accu-Cheks a.c. HS, sliding scale insulin, and hypoglycemia protocol. BS this morning was 126. Subjective Date/time seen: 03/07/22 09:56 Interval history: ?56-year-old male with a past medical history of ischemic cardiomyopathy with preserved ejection fraction, coronary disease status post 2 stents, essential hypertension, type 2 diabetes mellitus, and morbid obesity presented to the ER with dyspnea on exertion. He feels about the same today. He is 92% on RA. Short of breath still with exertion. Denies LE edema. Denies URI symptoms. No chest pain. Review of Systems Review of Systems: All systems reviewed & are unremarkable except as noted in HPI and below Exam Narrative: General: No acute distress, non toxic appearing, obese Eyes: PERRL, no scleral icterus HEENT: NCAT, external ears normal, MMM Respiratory: No respiratory distress, Lungs CTA bilaterally, no wheezing Cardiovascular: RRR, no murmur Abdominal: Soft, nontender, non distended, no rebound or guarding Musculoskeletal: Moves all 4 extremities, no edema Neurological: A/Ox3, speech clear, no facial asymmetry Skin: Warm, dry, no rashes Psychiatric: Normal affect, normal mood Objective Data Vital Signs Vital Signs: Vital Signs - 24 hr 03/06/22 16:48 03/06/22 17:22 03/06/22 17:11 Temperature 97.6 F Pulse Rate 81 74 Respiratory Rate 16 24 H Blood Pressure 186/83 H Pulse Oximetry 97 95 Oxygen Delivery Room Air 03/06/22 17:12 03/06/22 17:15 03/06/22 17:16 Temperature Pulse Rate 74 77 85 Respiratory Rate 16 17 25 H Blood Pressure 156/80 H 169/94 H Pulse Oximetry 97 96 98 Oxygen Delivery 03/06/22 17:30 03/06/22 17:31 03/06/22 17:45 Temperature Pulse Rate 71 75 69 Respiratory Rate 14 16 Blood Pressure 150/73 H Pulse Oximetry 95 96 93 Oxygen Delivery 03/06/22 17:47 03/06/22 18:00 03/06/22 18:01 Temperature Pulse Rate 68 70 70 Respiratory Rate 15 15 16 Blood Pressure 147/80 H 146/82 H Pulse Oximetry 96 97 96 Oxygen Delivery 03/06/22 18:15 03/06/22 18:16 03/06/22 18:17 Temperature Pulse Rate 66 69 67 Respiratory Rate 19 19 15 Blood Pressure 155/75 H Pulse Oximetry 91 99 95 Oxygen Delivery 03/06/22 18:30 03/06/22 18:31 03/06/22 18:45 Temperature Pulse Rate 69 72 68 Respiratory Rate 14 17 21 H Blood Pressure 133/73 Pulse Oximetry 95
[2022-03-07 12:44] LABS: Glucose Point of Care 106 mg/dl (65-105)
[2022-03-07] MEDS: PERFLUTREN LIPID MICROSPHERES 1.5 ML VIAL DILUTED TO 10 ML TOTAL VOLUME IV PUSH (14:10)
[2022-03-07 17:37] LABS: Glucose Point of Care 180 mg/dl (65-105)
[2022-03-07 20:15] LABS: Glucose Point of Care 225 mg/dl (65-105)
[2022-03-07] MEDS: FUROSEMIDE INJ 40 MG/4 ML VIAL IV PUSH (22:51)
[2022-03-08] VITALS (12 sets, daily range): BP systolic 103–121; BP diastolic 60–88; PULSE 62–86; RESP 16–20; TEMP 36.6–36.9; O2SAT 94–99
[2022-03-08] MEDS: LEVOTHYROXINE SODIUM 25 MCG TABLET PO (05:20)
[2022-03-08 08:55] LABS: Glucose Point of Care 154 mg/dl (65-105)
[2022-03-08] MEDS: ENOXAPARIN 40 MG/0.4 ML SYRINGE SUB-Q (08:55)
[2022-03-08] MEDS: CELECOXIB 100 MG CAPSULE PO ×2 (08:56→18:27)
[2022-03-08] MEDS: carvediloL 25 MG TABLET PO ×2 (08:56→21:37)
[2022-03-08] MEDS: ATORVASTATIN 40 MG TABLET 80 MG PO (08:56)
[2022-03-08] MEDS: lisinopriL 10 MG TABLET PO (08:57)
[2022-03-08] MEDS: ASPIRIN 81 MG ENTERIC TABLET PO (08:57)
[2022-03-08] MEDS: metFORMIN HCL 500 MG TABLET 1000 MG PO ×2 (08:57→18:27)
[2022-03-08] MEDS: FUROSEMIDE INJ 40 MG/4 ML VIAL IV PUSH (09:07)
[2022-03-08] MEDS: FUROSEMIDE INJ 40 MG/4 ML VIAL (09:20)
[2022-03-08 10:48] LABS: Hemoglobin 15.7 g/dL (14.0-18.0); Mean Corpuscular HGB Conc 32.7 g/dl (32-36); Mean Corpuscular Hemoglobin 30.2 pg (26-34); Mean Corpuscular Volume 92.3 fl (80-100); Mean Platelet Volume 10.3 fl (7.4-10.4); Platelet Count Result 201 k/mm3 (150-375); Red Cell Distribution Width 12.5 % (11.5-14.5); White Blood Count 6.9 K/mm3 (4.5-10.0)
[2022-03-08 11:01] LABS: Anion Gap 7 mmol/L (8-16); Blood Urea Nitrogen 23 mg/dL (9-20); Calcium 9.2 mg/dL (8.4-10.2); Carbon Dioxide 32 mmol/L (22-30); Chloride 97 mmol/L (98-107); Estimated CRCL calculation 117 ml/min; Estimated Glomerular Filt Rate > 60; Glucose 174 mg/dL (65-110); Potassium 3.6 mmol/L (3.4-5.0); Sodium 136 mmol/L (137-145)
[2022-03-08 12:21] LABS: Glucose Point of Care 89 mg/dl (65-105)
--- NOTE | 2022-03-08 16:00 | PM.IMPN ---
Progress Note: A&P Assessment and Plan (1) Dyspnea on exertion: Code(s): R06.09 - Other forms of dyspnea Status: Acute (2) Hypoxia: Code(s): R09.02 - Hypoxemia Status: Acute (3) Ischemic cardiomyopathy: Code(s): I25.5 - Ischemic cardiomyopathy Status: Acute (4) Diastolic dysfunction: Code(s): I51.89 - Other ill-defined heart diseases Status: Acute Plan Patient is having dyspnea on exertion with associated hypoxia with exertion. This could be due to diastolic dysfunction and or the patient's ischemic cardiomyopathy causing some component of heart failure although chest x-ray does not demonstrate obvious heart failure and BNP is relatively normal. V/Q scan ruled out pulmonary embolism and D-dimer was borderline for age corrected adjustments. Patient is not having lower extremity symptoms that was suggest DVT with associated pulmonary embolism. He has IV contrast allergy so CTA was not performed. Given the patient is having some mild nonproductive cough he could have an underlying pneumonia that cannot be seen on x-ray however he does not have white count, fever, or URI symptoms to suggest acute infection. Patient was given 1 dose of IV Lasix. Echocardiogram ordered to further evaluate his cardiac structure and function. Echo revealed grade 1 diastolic dysfunction and an EF of 55-60%. Patient sees Dr. Ochoa for cardiology. His symptoms could also be due to hypoxia from obesity hypoventilation with activity exacerbating his symptoms. Patient underwent ApneaLink which indicated a suspected pathological breathing disorder. Patient is recommended to have sleep study as an outpatient. The patient has chronically uncontrolled type 2 diabetes with last A1c of 8.19 December 2021. Resumed the patient's home 70/ 30 insulin and will add Accu-Cheks a.c. HS, sliding scale insulin, and hypoglycemia protocol. BS this morning was 126. Subjective Date/time seen: 03/08/22 16:00 Interval history: 56-year-old male with history myocardial infarction, hypertension, diabetes, hypothyroidism. Patient in the hospital due to shortness of breath. Patient suspected to have obstructive sleep apnea. Patient states that he does have daytime sleepiness. Patient shortness of breath is improving although he still has bouts here and there. Patient very nervous about his cardiac health. Exam Narrative: GENERAL: Comfortable, no acute distress, obese HENMT: moist mucous membranes EYES: EOM intact b/l NECK: no lymphadenopathy RESPIRATORY: clear to auscultation CARDIO: RRR GI: soft, nontender, bowel sounds present SKIN: no rashes EXTREMITIES: no edema, redness or tenderness Objective Data Vital Signs Vital Signs: Vital Signs - 24 hr 03/07/22 20:22 03/07/22 20:00 03/07/22 20:00 Temperature Pulse Rate 82 93 82 Respiratory Rate 18 Blood Pressure Pulse Oximetry 95 Oxygen Delivery Room Air 03/07/22 22:00 03/08/22 00:00 03/07/22 22:50 Temperature 98.1 F Pulse Rate 92 86 Respiratory Rate 20 Blood Pressure 108/47 L Pulse Oximetry 93 94 Oxygen Delivery Room Air 03/08/22 04:00 03/08/22 06:00 03/08/22 08:56 Temperature 98.0 F Pulse Rate 69 67 75 Respiratory Rate 16 Blood Pressure 121/70 Pulse Oximetry 95 Oxygen Delivery 03/08/22 14:00 03/08/22 09:00 Temperature 98.4 F Pulse Rate 81 81 Respiratory Rate 18 18 Blood Pressure 103/60 Pulse Oximetry 94 94 Oxygen Delivery Room Air Intake/Output Intake/Output: Intake & Output 03/05/22 03/06/22 03/07/22 03/08/22 23:59 23:59 23:59 23:59 Intake Total 1940 720 Output Total 1000 Balance 1940 -280 Meds/Results Medications: Active Medications Generic Name Dose Route Start Last Admin Trade Name Freq PRN Reason Stop Dose Admin Aspirin 81 mg 03/07/22 09:00 03/08/22 08:57 Aspirin 81 Mg Enteric Tablet PO 81 mg DAILY RENAE Administration Atorvastatin Calcium 80 mg
[2022-03-08 18:20] LABS: Glucose Point of Care 207 mg/dl (65-105)
[2022-03-08] MEDS: INSULIN ASPART (*BKC) 100 UNITS/ML SUB-Q (18:23)
[2022-03-08 21:32] LABS: Glucose Point of Care 37 mg/dl (65-105)
[2022-03-08] MEDS: DEXTROSE 50% 25 GM/50 ML SYRINGE IV PUSH (21:35)
[2022-03-09] VITALS: PULSE 62
[2022-03-09 04:00] VITALS: PULSE 87
[2022-03-09] MEDS: LEVOTHYROXINE SODIUM 25 MCG TABLET PO (05:56)
[2022-03-09 06:00] VITALS: BP 134/91; PULSE 80; RESP 20; TEMP 36.6; O2SAT 98
[2022-03-09 06:02] LABS: Hematocrit 45.5 % (42.0-52.0); Hemoglobin 14.6 g/dL (14.0-18.0); Mean Corpuscular HGB Conc 32.1 g/dl (32-36); Mean Corpuscular Hemoglobin 29.3 pg (26-34); Mean Corpuscular Volume 91.4 fl (80-100); Mean Platelet Volume 10.3 fl (7.4-10.4); Platelet Count Result 198 k/mm3 (150-375); Red Blood Count 4.98 M/mm3 (4.6-6.20); Red Cell Distribution Width 12.3 % (11.5-14.5); White Blood Count 6.7 K/mm3 (4.5-10.0)
[2022-03-09 06:05] LABS: Alanine Aminotransferase 22 U/L (6-50); Albumin Level 3.8 g/dL (3.5-5.1); Alkaline Phosphatase 68 U/L (38-126); Anion Gap 7 mmol/L (8-16); Aspartate Amino Transferase 20 U/L (17-59); Bilirubin,Total 0.6 mg/dL (0.2-1.3); Blood Urea Nitrogen 31 mg/dL (9-20); Calcium 8.6 mg/dL (8.4-10.2); Carbon Dioxide 31 mmol/L (22-30); Chloride 102 mmol/L (98-107); Estimated CRCL calculation 106 ml/min; Estimated Glomerular Filt Rate > 60; Glucose 112 mg/dL (65-110); Potassium 3.7 mmol/L (3.4-5.0); Sodium 140 mmol/L (137-145)
[2022-03-09 08:38] VITALS: PULSE 92
[2022-03-09] MEDS: ENOXAPARIN 40 MG/0.4 ML SYRINGE SUB-Q (08:38)
[2022-03-09] MEDS: carvediloL 25 MG TABLET PO (08:38)
[2022-03-09 08:39] LABS: Glucose Point of Care 228 mg/dl (65-105)
[2022-03-09] MEDS: ATORVASTATIN 40 MG TABLET 80 MG PO (08:39)
[2022-03-09] MEDS: CELECOXIB 100 MG CAPSULE PO (08:39)
[2022-03-09] MEDS: ASPIRIN 81 MG ENTERIC TABLET PO (08:39)
[2022-03-09] MEDS: metFORMIN HCL 500 MG TABLET 1000 MG PO (08:39)
[2022-03-09] MEDS: lisinopriL 10 MG TABLET PO (08:39)
[2022-03-09] MEDS: FUROSEMIDE INJ 40 MG/4 ML VIAL IV PUSH (08:40)
[2022-03-09] MEDS: INSULIN ASPART (*BKC) 100 UNITS/ML SUB-Q (08:44)
--- NOTE | 2022-03-09 10:44 | PM.DS ---
DS: Admitting Diagnosis Discharge Date 03/09/22 Admitting Diagnosis Shortness of breath, hypoxia DS: Discharge Diagnosis Discharge Diagnosis (1) Dyspnea on exertion: Code(s): R06.09 - Other forms of dyspnea Status: Acute (2) Hypoxia: Code(s): R09.02 - Hypoxemia Status: Acute (3) Ischemic cardiomyopathy: Code(s): I25.5 - Ischemic cardiomyopathy Status: Acute (4) Diastolic dysfunction: Code(s): I51.89 - Other ill-defined heart diseases Status: Acute Plan Patient is having dyspnea on exertion with associated hypoxia with exertion. This could be due to diastolic dysfunction and or the patient's ischemic cardiomyopathy causing some component of heart failure although chest x-ray does not demonstrate obvious heart failure and BNP is relatively normal. V/Q scan ruled out pulmonary embolism and D-dimer was borderline for age corrected adjustments. Patient is not having lower extremity symptoms that was suggest DVT with associated pulmonary embolism. He has IV contrast allergy so CTA was not performed. Given the patient is having some mild nonproductive cough he could have an underlying pneumonia that cannot be seen on x-ray however he does not have white count, fever, or URI symptoms to suggest acute infection. Patient was given 1 dose of IV Lasix. Echocardiogram ordered to further evaluate his cardiac structure and function. Echo revealed grade 1 diastolic dysfunction and an EF of 55-60%. Patient sees Dr. Ochoa for cardiology. His symptoms could also be due to hypoxia from obesity hypoventilation with activity exacerbating his symptoms. Patient underwent ApneaLink which indicated a suspected pathological breathing disorder. Patient is recommended to have sleep study as an outpatient. The patient has chronically uncontrolled type 2 diabetes with last A1c of 8.19 December 2021. Resumed the patient's home 70/ 30 insulin and will add Accu-Cheks a.c. HS, sliding scale insulin, and hypoglycemia protocol. BS this morning was 126. DS: Summary Hospital Course Reason for hospitalization: Shortness of breath, hypoxia Hospital Course: 56-year-old male with history of myocardial infarction, 2 stent placements, diabetes, hypothyroidism, hypertension and hyperlipidemia. Patient arrived to ED due to shortness of breath on 03/07/2022. Patient stated that he was working and all of sudden got extremely short of breath in this worried him due to his past cardiac history. Patient was found to have a pulse ox 88% on room air with ambulation in the ER. Patient was not having any chest pain or palpitations. Patient did not have any lower extremity edema or calf pain. Patient D-dimer minimally elevated. V/Q scan negative for PE. Patient follows Dr. Ochoa from Cardiology and sees him in April. Patient did have sleep study done several years ago the patient stated that has put on weight since then. Patient denied orthopnea and nocturnal dyspnea. Patient does have daytime fatigue. X-ray negative. EKG similar prior EKG in 2019. Echocardiogram revealed grade 1 diastolic dysfunction and an EF of 55-60%. Patient's hypoxia could be due to obesity hypoventilation with activity exacerbating his symptoms. Patient underwent ApneaLink which indicated a suspected pathological breathing disorder. Recommend patient follow-up with a sleep study as an outpatient. Time Spent with Patient Time attestation: Total time spent providing and/or coordinating discharge services: Exam Narrative: GENERAL: Comfortable, no acute distress, obese HENMT: moist mucous membranes EYES: EOM intact b/l NECK: no lymphadenopathy RESPIRATORY: clear to auscultation CARDIO: RRR GI: soft, nontender, bowel sounds present SKIN: no rashes EXTREMITIES: no edema, redness or tenderness DS: Data Data Completed and Pending Labs on day of discharge: Labs from last 24 hours 03/09/22 03/09/22 03/09/22 08:23 05:41 05:41 WBC
== END 2022-03-09 11:35 | disposition home or self-care (01) ==
LOC: ANHED 03-07 01:05 → ANH3MED 03-07 06:55 → ANH3MEDSUR 03-12 13:00
PROVIDERS: Emergency Medicine; Internal Medicine Critical Care Medicine; Physician Assistant; Admitting Provider Internal Medicine; Emergency Provider Emergency Medicine; PCP Family Medicine; Visit Provider Physician Assistant
DX: R06.9 Unspecified abnormalities of breathing (principal); R09.02 Hypoxemia; I25.5 Ischemic cardiomyopathy; I11.9 Hypertensive heart disease without heart failure; I25.10 Atherosclerotic heart disease of native coronary artery without angina pectoris; Z95.5 Presence of coronary angioplasty implant and graft; R79.1 Abnormal coagulation profile; I25.2 Old myocardial infarction; R05.3 Chronic cough; Z20.822 Contact with and (suspected) exposure to COVID-19; E78.5 Hyperlipidemia, unspecified; E87.1 Hypo-osmolality and hyponatremia; E11.65 Type 2 diabetes mellitus with hyperglycemia; R94.31 Abnormal electrocardiogram [ECG] [EKG]; Z68.41 Body mass index [BMI] 40.0-44.9, adult; G47.33 Obstructive sleep apnea (adult) (pediatric); E66.01 Morbid (severe) obesity due to excess calories; Z79.4 Long term (current) use of insulin; Z86.39 Personal history of other endocrine, nutritional and metabolic disease; Z79.82 Long term (current) use of aspirin; Z79.84 Long term (current) use of oral hypoglycemic drugs; Z79.899 Other long term (current) drug therapy; Z82.49 Family history of ischemic heart disease and other diseases of the circulatory system; Z83.3 Family history of diabetes mellitus
CPT/HCPCS: 36415; 71046; 78580; 80048; 80053; 82948; 83880; 84484; 85025; 85027; 85380; 87636; 93005; 94762; 96372; 96374; 96375; 96376; 99285; A9270; A9540; C8929; G0378; G0379; J1650; J1815; J1940; Q9957

== ENCOUNTER 2022-05-15 08:10 | Outpatient (CLI) | payer OTHER, SELFPAY ==
--- NOTE | 2022-06-11 19:49 | WPDSLEEPSTUD ---
Sleep Study Date of Study: 05/15/22 Ordering Provider: Elder Liang MD Interpreting Physician: Isabel Gaytan, Sleep Study Type: Split Polysomnogram Height: 1.7 m Weight: 118.388 kg Body Mass Index: 40.8 Neck Circumference (inches): 18.5 Cashmere: 2 Reason for Sleep Study Suspicion for ELIJAH while patient was hospitalized Sleep History The patient is a 57-year-old male with coronary artery disease, type 2 diabetes, diabetic retinopathy, diastolic dysfunction, erectile dysfunction, hyperlipidemia, hypertension, hypogonadism, hypothyroidism, ischemic cardiomyopathy, history of STEMI, history of cardiac stent x 2 and morbid obesity that had a sleep study ordered for evaluation of sleep apnea. 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 He rarely awakens from sleep short of breath. He occasionally awakens at night with heartburn, belching or cough. He occasionally snores and is occasionally loud enough that others complain. He occasionally has trouble sleeping when he has a cold. He rarely wakes up gasping for air throughout the night. He rarely has breathing problems at night observed by himself or others. He denies sweating excessively at night. He denies having heart palpitations or irregular heartbeats during the night. He rarely falls asleep during the day but never while driving. He denies sleep paralysis, cataplexy and hypnagogic / hypnopompic hallucinations. He denies having trouble at school or work due to sleepiness. He denies feeling afraid of going to sleep. He occasionally has nightmares and occasionally remembers his dreams. He occasionally has thoughts racing through his mind. He denies feeling sad or depressed. He rarely has anxiety. He occasionally has muscular tension. He denies noticing parts of his body jerk. He denies kicking during the night. He denies having crawling and aching feelings in his legs but occasionally has leg pain during the night. He denies grinding his teeth during sleep and denies awakening with morning jaw pain. He is occasionally bothered by pain during the day but rarely awakened by pain during the night. He rarely wakes up feeling in the morning. He occasionally wakes up with sore or achy muscles. He occasionally wakes up with pain in the neck, spine or other joints. The patient goes to bed between 8-10 p.m. on weekdays and between 9-10 p.m. on the weekends. It takes him less than 30 minutes to fall asleep. He will occasionally wake up throughout the night to urinate but is able to fall back asleep within 10 minutes. He wakes up between 4-6 a.m. on both weekdays and weekends. He typically gets 6-8 hours of sleep per night. He will stay in bed for few minutes after waking up. He currently lives with his adult son. He does not consume any caffeinated beverages within 2 hours of bedtime. He does not engage in physical exercise before bedtime. He will watch television before falling asleep. He denies taking naps in the afternoon or the evening. He consumes a variable amount of caffeine per day. He denies tobacco, alcohol and recreational drug use. [facility] Past Medical History Medical History BMI greater than 40 Coronary artery disease Diabetic neuropathy Diabetic retinopathy Diastolic dysfunction echocardiogram January 2018: Mild left ventricular hypertrophy, diastolic dysfunction present, increased left heart filling pressure based on ED EF 60% trace [id number] intra-arterial shunt by color Doppler suggestive of atrial septal defect, normal right ventricular systolic pressures RVSP 29 Erectile dysfunction Hyperlipidemia Hypertension Hypogonadism, male Hypothyroid Insulin dependent type 2 diabetes mellitus Ischemic cardiomyopathy Reported history of ?mild? ischemic cardiomyopathy. No echocardiogram has been done at this facility that I can see. Obstructive sleep apnea Sleep study in July 2018 demonstrated no ne
[2022-06-11 19:56] VITALS: BMI 40.8
--- NOTE | 2022-08-30 12:19 | SLEEP ---
new calls [id number]
== END 2022-05-16 07:01 | disposition home or self-care (01) ==
LOC: ANHCSM 08:11
PROVIDERS: PCP Family Medicine; Visit Provider Family Medicine
DX: G47.33 Obstructive sleep apnea (adult) (pediatric) (principal); I25.10 Atherosclerotic heart disease of native coronary artery without angina pectoris; E11.319 Type 2 diabetes mellitus with unspecified diabetic retinopathy without macular edema; I10 Essential (primary) hypertension; E78.5 Hyperlipidemia, unspecified
CPT/HCPCS: 95811

== ENCOUNTER 2022-07-08 09:22 | Outpatient (CLI) | payer BC, OTHER, SELFPAY ==
--- NOTE | 2022-08-05 12:08 | WPDSLEEPSTUD ---
Sleep Study Date of Study: 07/08/22 Ordering Provider: Elder Liang MD Interpreting Physician: Sofi Aranda MD Sleep Study Type: BiPAP Titration Height: 1.68 m Weight: 117.934 kg Body Mass Index: 41.9 Neck Circumference (inches): 18.5 Blanchard: 2 Reason for Sleep Study 05/15/22 ? Split PSG revealed severe sleep apnea with AHI 32.7 and desaturation to 83%. Patient was still having respiratory events on the final pressure of CPAP [id number] during that study. Sleep History Hunter Chandler is a 57-year-old man with history of coronary artery disease, type 2 diabetes, diabetic retinopathy, diastolic dysfunction, erectile dysfunction, hyperlipidemia, hypertension, hypogonadism, hypothyroidism, ischemic cardiomyopathy, history of STEMI s/p coronary stent x 2 and morbid obesity that presents for a PAP titration after split PSG 05/15/22 showed severe sleep apnea. 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 He rarely awakens from sleep short of breath.? He occasionally awakens at night with heartburn, belching or cough.? He occasionally snores and is occasionally loud enough that others complain.? He occasionally has trouble sleeping when he has a cold.? He rarely wakes up gasping for air throughout the night.? He rarely has breathing problems at night observed by himself or others.? He denies sweating excessively at night.? He denies having heart palpitations or irregular heartbeats during the night.? He rarely falls asleep during the day but never while driving.? He denies sleep paralysis, cataplexy and hypnagogic / hypnopompic hallucinations.? He denies having trouble at school or work due to sleepiness.? He denies feeling afraid of going to sleep.? He occasionally has nightmares and occasionally remembers his dreams.? He occasionally has thoughts racing through his mind.? He denies feeling sad or depressed.? He rarely has anxiety.? He occasionally has muscular tension.? He denies noticing parts of his body jerk.? He denies kicking during the night.? He denies having crawling and aching feelings in his legs but occasionally has leg pain during the night.? He denies grinding his teeth during sleep and denies awakening with morning jaw pain.? He is occasionally bothered by pain during the day but rarely awakened by pain during the night.? He rarely wakes up feeling in the morning.? He occasionally wakes up with sore or achy muscles.? He occasionally wakes up with pain in the neck, spine or other joints.? The patient goes to bed between 8-10 p.m. on weekdays and between 9-10 p.m. on the weekends.? It takes him less than 30 minutes to fall asleep.? He will occasionally wake up throughout the night to urinate but is able to fall back asleep within 10 minutes.? He wakes up between 4-6 a.m. on both weekdays and weekends.? He typically gets 6-8 hours of sleep per night.? He will stay in bed for few minutes after waking up.? He currently lives with his adult son.? He does not consume any caffeinated beverages within 2 hours of bedtime.? He does not engage in physical exercise before bedtime.? He will watch television before falling asleep.? He denies taking naps in the afternoon or the evening.? Habits: Tobacco: none. Caffeine: variable amount of caffeine per day.? Alcohol and recreational substances: none. [facility] Past Medical History Medical History BMI greater than 40 Coronary artery disease Diabetic neuropathy Diabetic retinopathy Diastolic dysfunction echocardiogram January 2018: Mild left ventricular hypertrophy, diastolic dysfunction present, increased left heart filling pressure based on ED EF 60% trace [id number] intra-arterial shunt by color Doppler suggestive of atrial septal defect, normal right ventricular systolic pressures RVSP 29 Erectile dysfunction Hyperlipidemia Hypertension Hypogonadism, male Hypothyroid Insulin dependent type 2 diabetes mellitus Ischemic cardiomyopathy Reported history of ?mild? isc
[2022-08-05 12:32] VITALS: BMI 41.9
== END 2022-07-09 06:52 | disposition home or self-care (01) ==
LOC: ANHCSM 09:23
PROVIDERS: PCP Family Medicine; Visit Provider Family Medicine
DX: G47.33 Obstructive sleep apnea (adult) (pediatric) (principal)
CPT/HCPCS: 95811

== ENCOUNTER 2022-10-03 14:31 | Outpatient (CLI) | payer BC, OTHER, SELFPAY ==
[2022-10-03 14:58] LABS: Alanine Aminotransferase 26 U/L (6-50); Albumin Level 4.6 g/dL (3.5-5.1); Alkaline Phosphatase 63 U/L (38-126); Aspartate Amino Transferase 22 U/L (17-59); Bilirubin,Total 0.7 mg/dL (0.2-1.3)
== END 2022-10-03 14:32 | disposition home or self-care (01) ==
LOC: ANHLAB 14:33
PROVIDERS: PCP Family Medicine; Visit Provider Nurse Practitioner Family
DX: Z51.81 Encounter for therapeutic drug level monitoring (principal)
CPT/HCPCS: 36415; 80076

== ENCOUNTER 2022-12-05 06:36 | Outpatient (CLI) | payer BC, OTHER, SELFPAY ==
--- NOTE | ~2022-12-05 | NM_ITS ---
EXAMINATION: NM julissa stress w perfusion DATE: 12/05/2022 09:54 INDICATION: Other forms of dyspnea TECHNIQUE: Rest images were obtained following intravenous administration of 11.8 mCi Tc99m tetrofosm in (Myoview). The patient was infused intravenously with Lexiscan (Regadenoson). Then, 33.8 mCi Tc99m tetrofosmin (Myoview) was administered intravenously, and stress images were obtained in both supine and subsequently in prone position. Data was reconstructed into short axis and horizontal and vertic al long axis SPECT images. Gated SPECT images were also obtained. COMPARISON: None. FINDINGS: Large moderate severity perfusion defect involving the apical, apical and mid anterior, api dean septal, mid anteroseptal and apical inferior segments on both supine and prone post stress imagin g. This appears similar in extent but portions of which appear less severe on rest images consistent with mild ischemia superimposed over infarct. There is normal left ventricular chamber size, wall mo tion and ejection fraction. Left ventricular ejection fraction measures 55%. IMPRESSION: 1. Large region of mild to moderate severity infarct with regions of superimposed mild ischemia invol ving the mid and apical left anterior descending coronary artery vascular distribution. 2. Left ventricular ejection fraction measuring 55%. Reviewed, dictated and finalized at location A. IMPRESSION: 1. Large region of mild to moderate severity infarct with regions of superimpos ed mild ischemia involving the mid and apical left anterior descending coronary artery vascular distribution. 2. Left ventricular ejection fraction measuring 55%.
[2022-12-05 07:50] LABS: Cholesterol 116 mg/dL (0-200); HDL Direct 31 mg/dL; Triglycerides 64 mg/dL (<150)
[2022-12-05 08:00] LABS: LDL Cholesterol Direct 66 mg/dL
[2022-12-05 08:07] LABS: Creatinine Urine 92.5 mg/dL
[2022-12-05 08:12] LABS: MALB Creatinine Ratio < 6.5 mg/g (0-30); Microalbumin Urine Random < 6.0 mg/L (0-16.7)
[2022-12-05 08:17] LABS: Free T4 Free Thyroxine 0.89 ng/mL (0.78-2.19)
--- NOTE | 2022-12-05 08:18 | EST_ITS ---
Patient Info Name: Hunter Chandler Age: 57 years : 1965 Gender: Male Ht: 67 in Wt: 216 lbs BSA: 2.19 m2 HR: 71 bpm BP: 91 / 51 mmHg Heart Rhythm: Sinus Rhythm Exam Date: 12/05/2022 8:29 AM Exam Location: [facility] Stress Patient Status: Outpatient Admit Date: 12/05/2022 Staff Ordering Physician: Biju Keys DO Attending Provider: Biju Keys DO Referring Physician: Valeria Patel MD; Exercise Technologist: Lauryn Waller CT Exercise Physician: Biju Keys DO Exam Type: CA stress julissa w NM Study Info Indications R06.09 - Other forms of dyspnea A regadenoson stress test was performed. Summary 1. 1. Negative lexiscan stress test for ischemic ST changes by ECG criteria. 2. 2. Baseline relative hypotension. 3. 3. Aminophylline 100 mg IV given for reversal given significant persistent side effects of lexiscan. 4. 4. Nuclear scan to follow and will be reported separately. Please correlate with it. 5. 5. Patient informed of the above results. Protocol: Lexiscan Stress ECG Details Stage: REST Duration (min): 4 min : 58 sec HR (bpm): 72 SBP (mmHg): 91 DBP (mmHg): 56 Stage: REST Duration (min): 10 min : 10 sec HR (bpm): 73 SBP (mmHg): 91 DBP (mmHg): 56 Stage: STAGE 1 Duration (min): 1 min : 0 sec HR (bpm): 80 SBP (mmHg): 85 DBP (mmHg): 62 Stage: RECOVERY Duration (min): 1 min : 0 sec HR (bpm): 83 SBP (mmHg): 85 DBP (mmHg): 62 Stage: RECOVERY Duration (min): 2 min : 0 sec HR (bpm): 77 SBP (mmHg): 85 DBP (mmHg): 62 Stage: RECOVERY Duration (min): 3 min : 0 sec HR (bpm): 75 SBP (mmHg): 85 DBP (mmHg): 62 Stage: RECOVERY Duration (min): 4 min : 0 sec HR (bpm): 83 SBP (mmHg): 110 DBP (mmHg): 68 Stage: RECOVERY Duration (min): 5 min : 0 sec HR (bpm): 84 SBP (mmHg): 69 DBP (mmHg): 53 Stage: RECOVERY Duration (min): 6 min : 0 sec HR (bpm): 83 SBP (mmHg): 69 DBP (mmHg): 53 Stage: RECOVERY Duration (min): 7 min : 0 sec HR (bpm): 83 SBP (mmHg): 69 DBP (mmHg): 53 Stage: RECOVERY Duration (min): 8 min : 0 sec HR (bpm): 82 SBP (mmHg): 118 DBP (mmHg): 53 Stage: RECOVERY Duration (min): 8 min : 21 sec HR (bpm): 78 SBP (mmHg): 118 DBP (mmHg): 60 Rest HR: 73 bpm Peak HR: 89 bpm Rest Sys BP: 91 mmHg Peak Sys BP: 118 mmHg Max Pred HR: 165 bpm % Max Pred HR: 54 % Target HR: 140 bpm Max RPP: 10,502 bpm*mmHg Termination Reason: Completed protocol Cardiac Symptoms: Shortness of breath, Nausea, Headache Total Time: 1 min : 0 sec Rest Shoemaker BP: 56 mmHg Peak Shoemaker BP: 60 mmHg Total Dose: 0.4 mg Resting ECG Sinus rhythm, anteroseptal infarct, age indeterminate. Stress ECG No ST changes. Arrhythmias None. Report Signatures
[2022-12-05 08:23] LABS: Prostate Specific Antigen 0.7 ng/mL (< OR = 4.0)
[2022-12-08 14:43] LABS: Thyroid Peroxidase Antibodies <1 IU/mL (<9)
[2022-12-11 06:01] LABS: Triiodothyronine T3 Free 3.4 pg/mL (2.3-4.2)
== END 2022-12-05 06:37 | disposition home or self-care (01) ==
PROVIDERS: Nurse Practitioner Family; PCP Family Medicine; Referring Provider Internal Medicine Endocrinology, Diabetes & Metabolism; Visit Provider Internal Medicine Cardiovascular Disease
DX: R79.89 Other specified abnormal findings of blood chemistry (principal); E11.65 Type 2 diabetes mellitus with hyperglycemia; E78.5 Hyperlipidemia, unspecified; E04.9 Nontoxic goiter, unspecified; Z12.5 Encounter for screening for malignant neoplasm of prostate; R06.09 Other forms of dyspnea
CPT/HCPCS: 36415; 78452; 80061; 82043; 84153; 84439; 84443; 84481; 86376; 93017; A9502; G0103; J0280; J2785

== ENCOUNTER 2023-02-07 02:03 | Day surgery (SDC) | payer BC, OTHER, SELFPAY ==
[2023-01-21 14:41] VITALS: BMI 33.8
--- NOTE | 2023-02-05 09:03 | SUR.PREOP ---
Patient called regarding upcoming procedure. Reviewed preop instructions, appointment times, and procedure prep.
--- NOTE | 2023-02-06 09:51 | WPDANESEPPF ---
Anes - Initial Pre Proc Eval Procedure: Operation Date: 02/07/23 09:00 Proposed Procedures p Screening Colonoscopy - Trey Salinas MD Date/Time: 02/06/23 09:51 Surgeon: Trey Salinas MD Pre Op Diagnosis: neoplasm screening Patient Data Age: 57 Gender: M Height: 1.7 m Weight: 98 kg Allergies Allergy/AdvReac Type Severity Reaction Status Date / Time naproxen Allergy Intermediate Rash Verified 02/07/23 07:53 prednisone Allergy Intermediate Difficulty Verified 02/07/23 07:53 Breathing Iodinated Contrast Media Allergy Mild Hives Verified 02/07/23 07:53 Home Medications Medication Instructions Recorded Confirmed Type aspirin 81 mg tablet,delayed 81 mg PO DAILY 05/28/19 02/07/23 History [facility]/07/22 02/07/23 History Verio test strips) blood-glucose meter ([facility] 03/07/22 02/07/23 History Verio Flex Meter) insulin syringe-needle U-100 1 mL 03/07/22 02/07/23 History 31 gauge x 5/16 (BD Insulin Syringe Ultra-Fine) lancets 33 gauge (OneTouch Delica 03/07/22 02/07/23 History Lancets) blood-glucose sensor (FreeStyle #6 ea 06/13/22 02/07/23 Rx Lila 3 Sensor device) glucagon 3 mg/actuation nasal spray 3 mg intranasal ONCE #2 ea 07/02/22 02/07/23 Rx glucose 4 gram chewable tablet 16 g PO Q15M PRN hypoglycemia #60 07/02/22 02/07/23 Rx (Dex4 Glucose) tabs pen needle, diabetic 31 gauge x #100 ea 07/02/22 02/07/23 Rx 3/16 (BD Ultra-Fine Mini Pen Needle) dapagliflozin propanediol 10 mg 10 mg PO QAM #90 tabs 09/13/22 02/07/23 Rx tablet (Farxiga) semaglutide 2 mg/dose (8 mg/3 mL) 2 mg (0.75 mL) subcut WEEKLY 90 10/03/22 02/07/23 Rx subcutaneous pen injector days #9 mL metformin 1,000 mg tablet 1,000 mg PO BID #180 tabs 11/22/22 02/07/23 Rx Humalog Mix 75-25 KwikPen U-100 See Rx Instructions subcut 12/31/22 02/07/23 Rx insulin 100 unit/mL subcutaneous .COMPLEX 90 days #78 mL pen (insulin lispro protamin-lispro) lisinopril 10 mg tablet 10 mg PO DAILY #30 tabs 01/07/23 02/07/23 Rx carvedilol 25 mg tablet 25 mg PO BID 01/21/23 02/07/23 History atorvastatin 80 mg tablet See Rx Instructions .Route 02/06/23 02/07/23 Rx .COMPLEX #90 tabs Patient hx anesthesia problems: none Family hx anesthesia problems: none Results Review: All pre-operative results and documents have been reviewed as part of the pre-operative evaluation. [facility] Past Medical History Medical History (Updated 02/06/23 @ 09:52 by Gagandeep Escamilla DO) Abnormal stress test Adult BMI 38.0-38.9 kg/sq m Coronary artery disease Diabetes type 2, controlled Diabetic neuropathy Diabetic retinopathy Diastolic dysfunction echocardiogram January 2018: Mild left ventricular hypertrophy, diastolic dysfunction present, increased left heart filling pressure based on ED EF 60% trace [id number] intra-arterial shunt by color Doppler suggestive of atrial septal defect, normal right ventricular systolic pressures RVSP 29 Dietary counseling and surveillance Electrolyte abnormality Erectile dysfunction Hyperglycemia Hyperlipidemia Hypertension Hypogonadism, male Hypothyroid Insulin dependent type 2 diabetes mellitus Ischemic cardiomyopathy Reported history of ?mild? ischemic cardiomyopathy. No echocardiogram has been done at this facility that I can see. Knee Injury Medication monitoring encounter Obesity Obstructive sleep apnea Sleep study in July 2018 demonstrated no need for CPAP. Positive Juvencio test of left knee Radiodense bone lesion present on x-ray Screening for malignant neoplasm of prostate ST elevation (STEMI) myocardial infarction involving left anterior descending coronary artery (10/17/16) Status post drug-eluting stent x2 to the LAD, done at [facility]. Stress test in July 2018 was reportedly unremarkable. Uncontrolled type 2 diabetes mellitus with hyperglycemia, with long-term current use o
[2023-02-07 07:55] VITALS: BP 98/84; PULSE 73; RESP 20; TEMP 36.2; O2SAT 97; BMI 34.9
[2023-02-07] MEDS: LACTATED RINGERS 1,000 ML 150 ML IV CONT (07:58)
--- NOTE | 2023-02-07 08:40 | PM.HPGS ---
History of Present Illness History of Present Illness Consent: Risks, benefits, and alternatives have been discussed and questions answered. Patient agrees to proceed with procedure. Chief complaint: neoplasm screening Narrative: Hunter Chandler is a 57 year old male here for first screening colonoscopy Review of Systems Constitutional: Constitutional: Denies headache(s) and Denies weakness Eyes: Eyes: Denies blurry vision ENT: Reports Normal hearing present, Denies headache(s) and Denies neck pain Cardiovascular: Cardiovascular: Denies chest pain and Denies dyspnea Respiratory: Respiratory: Denies dyspnea Gastrointestinal: Gastrointestinal: Reports no additional gastrointestinal complaints Genitourinary: Genitourinary: Denies dysuria Musculoskeletal: Musculoskeletal: Denies neck pain Integumentary/Breasts: Skin/Breast: Denies dry skin Neurologic: Reports Normal hearing present, Denies headache(s) and Denies weakness Psychiatric: Psychiatric: Denies anxiety Endocrine: Endocrine: Denies change in body appearance Hematologic/Lymphatic: Hematologic/Lymphatic: Denies easy bleeding Allergic/Immunologic: Allergic/Immunologic: Denies urticaria PMF Past Medical History Medical History (Updated 02/06/23 @ 09:52 by Gagandeep Escamilla, ) Abnormal stress test Adult BMI 38.0-38.9 kg/sq m Coronary artery disease Diabetes type 2, controlled Diabetic neuropathy Diabetic retinopathy Diastolic dysfunction echocardiogram January 2018: Mild left ventricular hypertrophy, diastolic dysfunction present, increased left heart filling pressure based on ED EF 60% trace [id number] intra-arterial shunt by color Doppler suggestive of atrial septal defect, normal right ventricular systolic pressures RVSP 29 Dietary counseling and surveillance Electrolyte abnormality Erectile dysfunction Hyperglycemia Hyperlipidemia Hypertension Hypogonadism, male Hypothyroid Insulin dependent type 2 diabetes mellitus Ischemic cardiomyopathy Reported history of ?mild? ischemic cardiomyopathy. No echocardiogram has been done at this facility that I can see. Knee Injury Medication monitoring encounter Obesity Obstructive sleep apnea Sleep study in July 2018 demonstrated no need for CPAP. Positive Juvencio test of left knee Radiodense bone lesion present on x-ray Screening for malignant neoplasm of prostate ST elevation (STEMI) myocardial infarction involving left anterior descending coronary artery (10/17/16) Status post drug-eluting stent x2 to the LAD, done at [facility]. Stress test in July 2018 was reportedly unremarkable. Uncontrolled type 2 diabetes mellitus with hyperglycemia, with long-term current use of insulin Surgical History Surgical History Hx of heart artery stent 2016, CAD + drug eluting stent x2 to LAD, pulse positive stress test November 2020 with cardiac catheterization demonstrating residual hypocontractility of mid to apical anterior wall, EF within normal limits, proximal LAD with previous stents that remain widely patent Status post carpal tunnel release of both wrists Status post left rotator cuff repair Status post right rotator cuff repair Status post spinal surgery L5 fusion with hardware. Status post tonsillectomy Family History Family History Father Family history of lung cancer Diabetes mellitus Mother Family history of congestive heart failure Kidney disease Hypertension Sibling Emphysema lung Heart disease Malignant neoplasm of prostate Tobacco abuse Cancer Social History Social History Social History: The patient lives in [place] with his mother. He designates his mother, Arlette, as his surrogate decision maker and he wishes to be a full code. 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 He has 2
[2023-02-07 09:00] VITALS: BP 100/60; PULSE 71; RESP 16; O2SAT 97
[2023-02-07 09:10] VITALS: BP 104/65; PULSE 64; RESP 18; O2SAT 95
[2023-02-07 09:20] VITALS: BP 114/69; PULSE 64; RESP 18; O2SAT 98
== END 2023-02-07 09:29 | disposition home or self-care (01) ==
PROVIDERS: PCP Family Medicine; Visit Provider Internal Medicine Gastroenterology
PROC: 0DJD8ZZ Inspection of Lower Intestinal Tract, Via Natural or Artificial Opening Endoscopic (ICD-10-PCS; CPT 45378; principal; 2023-02-07 09:00)
DX: Z12.11 Encounter for screening for malignant neoplasm of colon (principal); K63.5 Polyp of colon; I25.10 Atherosclerotic heart disease of native coronary artery without angina pectoris; E11.40 Type 2 diabetes mellitus with diabetic neuropathy, unspecified; E11.319 Type 2 diabetes mellitus with unspecified diabetic retinopathy without macular edema; I11.9 Hypertensive heart disease without heart failure; E78.5 Hyperlipidemia, unspecified; E03.9 Hypothyroidism, unspecified; I25.5 Ischemic cardiomyopathy; I25.2 Old myocardial infarction; G47.33 Obstructive sleep apnea (adult) (pediatric); Z95.5 Presence of coronary angioplasty implant and graft; E66.9 Obesity, unspecified; Z68.35 Body mass index [BMI] 35.0-35.9, adult; Z79.82 Long term (current) use of aspirin; Z79.4 Long term (current) use of insulin; Z79.84 Long term (current) use of oral hypoglycemic drugs; Z79.85 Long-term (current) use of injectable non-insulin antidiabetic drugs
CPT/HCPCS: 45385; 88305; J7120

== ENCOUNTER 2023-05-08 07:49 | Outpatient (CLI) | payer BC, OTHER, SELFPAY ==
[2023-05-08 08:41] LABS: Hematocrit 51.3 % (42.0-52.0); Hemoglobin 16.4 g/dL (14.0-18.0); Mean Corpuscular Hemoglobin 29.5 pg (26-34); Mean Corpuscular Volume 92.3 fl (80-100); Mean Platelet Volume 11.4 fl (7.4-10.4); Platelet Count Result 169 k/mm3 (150-375); Red Blood Count 5.56 M/mm3 (4.6-6.20); Red Cell Distribution Width 12.1 % (11.5-14.5)
[2023-05-08 09:17] LABS: Vitamin D 25 Hydroxy 29.3 ng/mL
[2023-05-08 09:41] LABS: Microalbumin Urine Random 13.3 mg/L (0-16.7)
[2023-05-08 10:02] LABS: Creatinine Urine 80.1 mg/dL; MALB Creatinine Ratio 16.6 mg/g (0-30)
[2023-05-08 13:53] LABS: Alanine Aminotransferase 24 U/L (6-50); Albumin Level 4.4 g/dL (3.5-5.1); Alkaline Phosphatase 66 U/L (38-126); Anion Gap 2 mmol/L (8-16); Aspartate Amino Transferase 24 U/L (17-59); Bilirubin,Total 1.1 mg/dL (0.2-1.3); Blood Urea Nitrogen 32 mg/dL (9-20); Calcium 9.1 mg/dL (8.4-10.2); Carbon Dioxide 32 mmol/L (22-30); Chloride 103 mmol/L (98-107); Cholesterol 125 mg/dL (0-200); Estimated Glomerular Filt Rate > 60; Glucose 196 mg/dL (65-110); HDL Direct 33 mg/dL; Potassium 4.9 mmol/L (3.4-5.0); Sodium 137 mmol/L (137-145); Triglycerides 85 mg/dL (<150)
[2023-05-08 14:04] LABS: LDL Cholesterol Direct 81 mg/dL
[2023-05-09 12:07] LABS: Prostate Specific Antigen 0.8 ng/mL (< OR = 4.0)
== END 2023-05-08 07:50 | disposition home or self-care (01) ==
LOC: ANHLAB 07:51
PROVIDERS: PCP Family Medicine; Visit Provider Nurse Practitioner Family
DX: E55.9 Vitamin D deficiency, unspecified (principal); E11.65 Type 2 diabetes mellitus with hyperglycemia; G47.33 Obstructive sleep apnea (adult) (pediatric); Z79.4 Long term (current) use of insulin; Z12.5 Encounter for screening for malignant neoplasm of prostate; R79.89 Other specified abnormal findings of blood chemistry
CPT/HCPCS: 36415; 80053; 80061; 82043; 82306; 84153; 84443; 85027

== ENCOUNTER 2024-03-03 10:22 | Outpatient (CLI) | payer BC, SELFPAY ==
[2024-03-03 11:15] LABS: Alanine Aminotransferase 34 U/L (6-50); Albumin Level 4.2 g/dL (3.5-5.1); Alkaline Phosphatase 58 U/L (38-126); Anion Gap 6 mmol/L (4-12); Aspartate Amino Transferase 24 U/L (17-59); Bilirubin,Total 0.8 mg/dL (0.2-1.3); Blood Urea Nitrogen 22 mg/dL (9-20); Calcium 9.3 mg/dL (8.4-10.2); Carbon Dioxide 33 mmol/L (22-30); Chloride 101 mmol/L (98-107); Cholesterol 119 mg/dL (0-200); Estimated Glomerular Filt Rate > 60; Glucose 121 mg/dL (65-110); HDL Direct 40 mg/dL; Potassium 3.8 mmol/L (3.4-5.0); Sodium 140 mmol/L (137-145); Triglycerides 53 mg/dL (<150)
[2024-03-03 11:26] LABS: LDL Cholesterol Direct 66 mg/dL
[2024-03-03 11:53] LABS: Vitamin D 25 Hydroxy 80.6 ng/mL
[2024-03-03 13:09] LABS: Creatinine Urine 92.2 mg/dL
[2024-03-03 13:13] LABS: MALB Creatinine Ratio 6.9 mg/g (0-30); Microalbumin Urine Random 6.4 mg/L (0-16.7)
== END 2024-03-03 10:23 | disposition home or self-care (01) ==
LOC: ANHLAB 10:22
PROVIDERS: PCP Family Medicine; Visit Provider Internal Medicine Endocrinology, Diabetes & Metabolism
DX: E11.65 Type 2 diabetes mellitus with hyperglycemia (principal); E11.40 Type 2 diabetes mellitus with diabetic neuropathy, unspecified; R79.89 Other specified abnormal findings of blood chemistry; E78.5 Hyperlipidemia, unspecified; Z71.3 Dietary counseling and surveillance; E55.9 Vitamin D deficiency, unspecified
CPT/HCPCS: 36415; 80053; 80061; 82043; 82306; 82607; 84443

== ENCOUNTER 2024-09-11 07:03 | Outpatient (CLI) | payer BC, SELFPAY ==
--- OUTSIDE RECORDS SUMMARY | 2024-09-11 07:06 | XMS_ITS | Clinical Summary ---
Author Organization [facility] [employer] Address [address] [facility] [place] [address] Care Team Providers Care Contact Centre Supervisor Name Role Phone Elder Liang MD Primary Care Provider [phone] Biju Keys DO Unavailable Source Comments [facility],non-owned Affiliates and Associated Physician Practices is amultiple site organization consisting of ambulatory clinics and hospital sitesin [place], [place], [place] and [place]. This disclosure is being madepursuant to the Care Everywhere program and may not contain all information available regarding this patient. Last updated 17.[facility] [employer] Allergies Active Allergy Reactions Criticality Noted Date Comments Adhesive Sensitivity Anaphylaxis High Contrast-Iodinated Agents For Ct/Other Urticaria Medium 11/18/2017 Iodides Anaphylaxis High 12/11/2016 Naproxen Unknown Povidone Iodine Unknown Prednisone Anaphylaxis High 10/30/2009 Medications * Be aware that medications may not be up to date on this document. Alwaysverify current medications with the patient. atorvastatin (LIPITOR) 80 MG tablet TK 1 T PO QD 4 11/04/2017 Active FREESTYLE LITE STRIPS test strip TEST BID 0 10/28/2017 Active lisinopril (PRINIVIL; ZESTRIL) 10 MG tablet TK 1 T PO D 3 11/04/2017 Active metFORMIN (GLUCOPHAGE) 1000 MG tablet TK 1 T PO BID WC 0 10/28/2017 Active Aspirin (ASPIR-81 PO) Active STEGLATRO 15 MG tablet TK 1 T PO D IN THE MORNING 0 02/16/2018 Active carvedilol (Coreg) 25 MG tablet Take 1 (one) tablet by mouth 2 times daily with morning and evening meal Active Active Problems Problem Noted Date Diagnosed Date S/P arthroscopy of left shoulder 02/26/2018 Adhesive capsulitis of left shoulder 11/26/2017 Superior labrum anterior-to- posterior (SLAP) tear of left shoulder 11/26/2017 Tendinopathy of left rotator cuff 11/26/2017 Chronic left shoulder pain 11/18/2017 Acute postoperative pain of left shoulder Immunizations Immunization Administration Dates Next Due INFLUENZA VACCINE 11/14/2017 Social History Tobacco Use Types Packs/Day Years Used Date Smoking Tobacco: Never Smokeless Tobacco: Never Alcohol Use Standard Drinks/Week Comments Yes 0 (1 standard drink = 0.6 oz pur e alcohol) occasional PHQ-2 Answer Date Recorded Patient Health Questionnaire-2 Score 3 08/10/2023 Sex and Gender Information Value Date Recorded Sex Assigned at Not on file Legal Sex Male 5:54 AM TRANSPORT ENGINEER Gender Identity Not on file Sexual Orientation Not on file Last Filed Vital Signs Vital Sign Reading Time Taken Comments Blood Pressure 122/70 09/25/2021 1:40 PM CDT Pulse 88 09/25/2021 1:40 PM CDT Temperature 36.8 C (98.2 F) 02/26/2018 11:46 AM TRANSPORT ENGINEER Respiratory Rate 19 02/26/2018 1:05 PM TRANSPORT ENGINEER Oxygen Saturation 96% 09/25/2021 1:40 PM CDT Inhaled Oxygen Concentration 21% 02/26/2018 1 2:45 PM TRANSPORT ENGINEER Weight 102.5 kg (226 lb) 08/11/2023 8:39 AM CDT Height 171.5 cm (5' 7.5) 08/11/2023 8:39 AM CDT Body Mass Index 34.87 08/11/2023 8:39 AM CDT Plan of Treatment Health Maintenance Due Date Last Done Comments COLOGUARD (AGES 45-75) - COL ON CA SCREENING 1967 COLON MONITORING 1967 COLONOSCOPY - COLON CA SCREENING 1967 CT COLONOGRAPHY - COLON CA SCREENING 1967 Colorectal Cancer Screening 1967 FIT - COLON CA SCREENING 1967 FLEX SIG - COLON CA SCREENING 1967 HIV SCREENING 1982 HEPATITIS C SCREENING 03/13/1985 DTAP/TDAP/TD VACCINES (1 - Tdap) 1986 HEPATITIS B VACCINE (1 of 3 - 19+ 3-dose series) 1986 PNEUMOCOCCAL VACCINE 50+ (1 of 1 - PCV) 2017 ZOSTER VACCINE (1 of 2) 2017 SCREENING FOR DIABETES 08/11/2023 02/26/2018 COVID-19 VACCINE (1 - 2023-2 5 season) 2023 DEPRESSION SCREENING 02/18/2024 INFLUENZA VACCINE (#1) 2024 11/14/2017 HIB VACCINE Aged Out No longer eligi ble based on patient's age to complete this topic HPV VACCINE Aged Out No longer eligi ble based on patient's age to complete this topic MENINGOCOCCAL (Group B) VACC INE SHARED DECISION-MAKING Aged Out No longer eligibl e based on patient's age to complete this topic MENINGOCOCCAL GROUPS A/C/Y/W VACCINE Aged Out No longer eligible b ased on patient's age to complete this topic Procedures Procedure Name Priority Date/Time Associated Diagnosis Comments GLUCOSE - POINT OF CARE Routine 02/26/2018 9:20 AM TRANSPORT ENGINEER from Last 3 Months or Most Recently Relevant to Health Maintenance Results * (ABNORMAL) GLUCOSE - POINT OF CARE (02/26/2018 9:20 AM TRANSPORT ENGINEER) [facility] Glucose WB/POC 151(H) 70 - 115 mg/dL 02/26/2018 9:25 AM TRANSPORT ENGINEER [facility] Specimen Type Arterial/C apillary 02/26/2018 9:25 AM TRANSPORT ENGINEER [facility] Blood BLOOD SPECIMEN / Unknown 02/26/2018 9:20 AM TRANSPORT ENGINEER 02/26/2018 9:25 AM TRANSPORT ENGINEER Narrative [facility] - 02/26/2018 9:25 AM TRANSPORT ENGINEER Cryptography Teacher: VANESA MCCOY us Sergio Keita MD LAB - POINT OF CARE ORDERABLES [place] [address], [facility] [phone] from Last 3 Months or Most Recently Relevant to Health Maintenance Insurance [facility] ANTH BCBS/BLUE BLUE CROSS BLUE [facility] [address] [place] [address] Care Teams Contact Centre Supervisor Relationship Specialty Start Date End Date Elder Liang MD [address] [place] [id number] PCP - General 11/12/17 Biju Keys DO [address] [facility] [address] [place] [address] 11/26/17
--- OUTSIDE RECORDS SUMMARY | 2024-09-11 07:06 | XMS_ITS | Continuity of Care Document ---
Author Organization [facility] Address [address] [place] [address] [place] [address] Phone Care Team Providers Care Environmental Sampler Name Role Phone Rex Aaron MD Unavailable Unavailable Allergies, Adverse Reactions, Alerts Substance Reaction Status Criticality prednisone Active No Information Medications Medication Instructions Dosage Effective Dates (start - stop) Status Comments Novolog Mix 70-30 FlexPen U-100 Insulin 100 unit/mL subcutaneous pen inject by subcutaneous route as per insulin protocol 0.00 - Active lisinopril 10 mg tablet take 1 tablet by oral route every day 10 MG - Active atorvastatin 80 mg tablet take 1 tablet by oral route every day 80 MG - Active carvedilol 6.25 mg tablet take 1 tablet by oral route 2 times every day with food 6.25 MG - Active aspirin 81 mg tablet,delayed release take 1 tablet by oral route every day 81 MG - Active Procedures Procedure Date SCODI, Retina No Charge Optomap Fundus Photos 021 Office/outpatient Visit, Est [facility] W/ Report Eye Exam, New Patient Advance Directives Directive Yes / No Effective Date File Name No Information Encounters Encounter Description Practice Location Reason(s) For Visit Diagnoses Date Provider Providers Copied on Encounter Office/outpa tient Visit, Est [facility], [address], [place], [place], [id number], [place] tel:[phone] [facility] LORD Professional 6 month Diabetic exam (chief complaint) Age-related nuclear cataract, left eyeCombined forms of age-related cataract, right eyePinguecula , bilateralType 2 diab with mild nonp rtnop without macular edema, bi Apr- 1 Galen Goodman. [address] [facility], [address], [place], [place], [id number], [place]. tel:[phone] Specialist: Dorie Martínez MD, [address] [place] [address] [address], [place], [address]. tel:[phone] Provider: Dorie Martínez MD, [address] [place] [address] [address], [place], [address]. tel:[phone] ng Provider: Riya Aponte OD, [address], [address]. tel:[phone] [facility] Eye [facility], [address], [place], [place], [id number], tel:[phone] [facility] Professional diabetic eye exam (chief complaint) Combined forms of age-related cataract, right eyeAge-relate d nuclear cataract, left eyePinguecula , bilateralType 2 diabetes with mild nonp rtnop with macular edema, bi Oct-1 0 Galen Goodman. [address] [facility], [address], [place], [place], [id number], [place]. tel:[phone] Other Provider: Dorie Martínez MD, [address] [place] [address] 1, [place], [address]. tel:[phone] ng Provider: Riya Aponte OD, [facility] [address] [place] [address], [address]. tel:[phone] Family History Family Member Type Diagnosis Age At Onset Problem Family history of Diabetes chrystal teran Payers Payer name Insurance type Covered alliance party ID Elkemaryam glass(s) Wilberttna CI [id number] Social History Type Description Quantity Date Captured [...] right eye and left eye. 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 Patient was sent by [facility] Dr. Riya Aponte for background diabetic [...]
--- OUTSIDE RECORDS SUMMARY | 2024-09-11 07:06 | XMS_ITS | Clinical Summary ---
Author Organization [facility] Address [address] [place] [address] Care Team Providers Care Teacher Counselor Name Role Phone Elder Liang MD Primary Care Provider [phone] Social History Tobacco Use Types Packs/Day Years Used Date Smoking Tobacco: Never Assessed Sex and Gender Information Value Date Recorded Sex Assigned at Not on file Legal Sex Male 8:20 PM CDT Gender Identity Not on file Sexual Orientation Not on file Plan of Treatment Health Maintenance Due Date Last Done Comments Colorectal Cancer Screening Colonoscopy (10 Years) 1967 Annual Physical 1970 Hepatitis C 1985 DTaP, Tdap and Td Vaccines ( 1 - Tdap) 1986 Hepatitis B Vaccines (1 of 3 - 19+ 3-dose series) 1986 Pneumococcal Vaccine: 50+ Ye ars (1 of 1 - PCV) 2017 Zoster Vaccines (1 of 2) 2017 COVID-19 Vaccine (1 - 2023-2 5 season) 2023 Meningococcal B Vaccine Aged Out No l onger eligible based on patient's age to complete this topic Meningococcal Vaccine Aged Out No pedro jovan eligible based on patient's age to complete this topic RSV Immunizations Under 20 Months Aged Out No longer eligible based on patient's age to complete this topic Care Teams Teacher Counselor Relationship Specialty Start Date End Date Elder iLang MD [address] [place], [place] [id number] PCP - General 07/21/15
[2024-09-11 07:51] LABS: Alanine Aminotransferase 58 U/L (6-50); Albumin Level 4.2 g/dL (3.5-5.1); Alkaline Phosphatase 66 U/L (38-126); Anion Gap 8 mmol/L (4-12); Aspartate Amino Transferase 32 U/L (17-59); Bilirubin,Total 1.1 mg/dL (0.2-1.3); Blood Urea Nitrogen 23 mg/dL (9-20); Calcium 10.4 mg/dL (8.4-10.2); Carbon Dioxide 29 mmol/L (22-30); Chloride 101 mmol/L (98-107); Cholesterol 108 mg/dL (0-200); Estimated Glomerular Filt Rate > 60; Glucose 362 mg/dL (65-110); HDL Direct 44 mg/dL; Potassium 4.5 mmol/L (3.4-5.0); Sodium 138 mmol/L (137-145); Total Protein 6.9 g/dL (6.3-8.2); Triglycerides 62 mg/dL (<150)
== END 2024-09-11 07:04 | disposition home or self-care (01) ==
LOC: ANHLAB 07:05
PROVIDERS: PCP Family Medicine; Visit Provider Internal Medicine Endocrinology, Diabetes & Metabolism
DX: E78.5 Hyperlipidemia, unspecified (principal); E11.65 Type 2 diabetes mellitus with hyperglycemia; Z79.4 Long term (current) use of insulin; E11.40 Type 2 diabetes mellitus with diabetic neuropathy, unspecified; E55.9 Vitamin D deficiency, unspecified
CPT/HCPCS: 36415; 80053; 80061; 82306

== ENCOUNTER 2024-11-01 17:25 | Outpatient (CLI) | payer BC, SELFPAY ==
--- OUTSIDE RECORDS SUMMARY | 2020-06-02 08:30 | XMS_ITS | Continuity of Care Document ---
Author Organization [facility] Address [address] [place] [address] [place] [address] Phone Care Team Providers Care Candy Cutter Machine Name Role Phone Rex Aaron MD Unavailable Unavailable Allergies, Adverse Reactions, Alerts Substance Reaction Status Criticality prednisone Active No Information Medications Medication Instructions Dosage Effective Dates (start - stop) Status Comments aspirin 81 mg tablet,delayed release take 1 tablet by oral route every day 81 MG - Active carvedilol 6.25 mg tablet take 1 tablet by oral route 2 times every day with food 6.25 MG - Active atorvastatin 80 mg tablet take 1 tablet by oral route every day 80 MG - Active lisinopril 10 mg tablet take 1 tablet by oral route every day 10 MG - Active Novolog Mix 70-30 FlexPen U-100 Insulin 100 unit/mL subcutaneous pen inject by subcutaneous route as per insulin protocol 0.00 - Active Procedures Procedure Date SCODI, Retina No Charge Optomap Fundus Photos 021 Office/outpatient Visit, Est Fundus Photography W/ Report Eye Exam, New Patient Advance Directives Directive Yes / No Effective Date File Name No Information Encounters Encounter Description Practice Location Reason(s) For Visit Diagnoses Date Provider Providers Copied on Encounter Office/outpa tient Visit, Est [facility], [address], [place], [place], [id number], [place] tel:[phone] [facility] Professional 6 month Diabetic exam (chief complaint) Age-related nuclear cataract, left eyeCombined forms of age-related cataract, right eyePinguecula , bilateralType 2 diab with mild nonp rtnop without macular edema, bi Apr- 1 Galen Goodman. [address], [address], [place], [place], [id number], [place]. tel:[phone] Specialist: Dorie Martínez MD, [address] [place] [address] [address], [place], [address]. tel:[phone] Provider: Dorie Martínez MD, [address] [place] [address] [address], [place], [address]. tel:[phone] ng Provider: Riya Aponte OD, [address], [address]. tel:[phone] [facility] Eye [facility], [address], [place], [place], [id number], tel:[phone] [facility] Professional diabetic eye exam (chief complaint) Combined forms of age-related cataract, right eyeAge-relate d nuclear cataract, left eyePinguecula , bilateralType 2 diabetes with mild nonp rtnop with macular edema, bi Oct-1 0 Galen Goodman. [address], [address], [place], [place], [id number], [place]. tel:[phone] Other Provider: Dorie Martínez MD, [address] [place] [address] 1, [place], [address]. tel:[phone] ng Provider: Riya Aponte OD, [facility] [address] [place] [address], [address]. tel:[phone] Family History Family Member Type Diagnosis Age At Onset Problem Family history of Diabetes chrystal teran Payers Payer name Insurance type Covered alliance party ID Elkemaryam glass(s) Wilberttna CI [id number] Social History Type Description Quantity Date Captured Comments Alcohol Use Details No Caffeine Use Details Tobacco Use Status Current non-smoker Smoking Status Never smoker Non-Smoking Tobacco Use Details : No Details Available : No Details Available Sex Male Chief Complaint And Reason For Visit From encounter dated '06/02/2020 13:30'. 6 month Diabetic exam (chief complaint). Description: The 55 year old male presents for evaluation of 6 month Diabetic exam in the right eye and left eye. 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 Patient denies any problems or changes with his eyes. Patient is a Type 2 diab x 15 years, Insulin dependant x 3 years, BS checked this am @ 216, a1c 11, and Dr. Dorie Martíneztreats his diab. Reason For Referral Reason For Referral No Information Plan Of Treatment Date Type Action Status Patient Education Type 2 Diabetes: Care I nstructions completed Patient Education Learning About Type 1 D iabetes completed History Of Present Illness Encounter Date Complaint History Of Prese nt Illness 6 month Diabetic exam The 55 yea r old male presents for evaluation of 6 month Diabetic exam in the right eye and left eye. 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 Patient denies any problems or changes with his eyes. Patient is a Type 2 diab x 15 years, Insulin dependant x 3 years, BS checked this am @ 216, a1c 11, and Dr. Dorie Martínez treats his diab. diabetic eye exam The 54 year ol d male presents for evaluation of diabetic eye exam in the right eye and left eye. Patient was sent by [facility] Dr. Riya Aponte for background diabetic ret. Patient states BS was 200 something yesterday. Patient works mid nights. Patient states his eyes are red. Patient has no VA complaints. Functional Status Date Functional Assessmen t No Information Instructions Date Instruction Additional Infor gregorioion Impression/Plan Impression/Plan Assessments Type Assessment Date assessment Age-related nuclear cataract, le ft eye assessment Combined forms of age-related ca taract, right eye assessment Pinguecula, bilateral Apr-16-202 1 assessment Type 2 diab with mild nonp rtnop without macular edema, bi Patient Care Teams Name Effective Dates (start - stop) Status Members No Information
[2024-11-01 17:55] LABS: Hematocrit 48.7 % (42.0-52.0); Hemoglobin 15.7 g/dL (14.0-18.0); Mean Corpuscular HGB Conc 32.2 g/dl (32-36); Mean Corpuscular Hemoglobin 30.1 pg (26-34); Mean Corpuscular Volume 93.3 fl (80-100); Platelet Count Result 200 k/mm3 (150-375); Red Blood Count 5.22 M/mm3 (4.6-6.20); White Blood Count 7.8 K/mm3 (4.5-10.0)
[2024-11-01 18:37] LABS: Prostate Specific Antigen 0.7 ng/mL (< OR = 4.0); Thyroid Stimulating Hormone 4.470 uIU/mL (0.465-4.680)
--- OUTSIDE RECORDS SUMMARY | 2024-11-01 19:10 | XMS_ITS | Clinical Summary ---
Author Organization [facility] Address [address] [place] [address] Care Team Providers Care Fur Stretcher Name Role Phone Elder Liang MD Primary Care Provider [phone] Social History Tobacco Use Types Packs/Day Years [...] COVID-19 Vaccine (1 - 2023-2 5 season) 2024 Meningococcal B Vaccine Aged Out No l onger eligible based on patient's age to complete this topic Meningococcal Vaccine Aged Out No pedro jovan eligible based on patient's age to complete this topic RSV Immunizations Under 20 Months Aged Out No longer eligible based on patient's age to complete this topic Care Teams Fur Stretcher Relationship Specialty Start Date End Date Elder Liang MD [address] [place], [place] [id number] PCP - General 07/21/15
--- OUTSIDE RECORDS SUMMARY | 2024-11-01 19:10 | XMS_ITS | Clinical Summary ---
Author Organization [facility] [employer] Address [address] [place] [place] [address] Care Team Providers Care Monumental Stonemason Name Role Phone Elder Liang MD Primary Care Provider [phone] Biju Keys DO Unavailable Source Comments [facility],non-owned Affiliates and Associated Physician Practices is amultiple site organization consisting of ambulatory clinics and hospital sitesin [place], [place], [place] and [place]. This disclosure is being madepursuant to the Care Everywhere program and may not contain all information available regarding this patient. Last updated 17.[facility] [employer] Allergies Active Allergy Reactions Criticality Noted Date [...] on file Legal Sex Male 5:54 AM TIBCO DEVELOPER Gender Identity Not on file Sexual Orientation Not on file Last Filed Vital Signs Vital Sign Reading Time Taken Comments Blood Pressure 122/70 09/25/2021 1:40 PM CDT Pulse 88 09/25/2021 1:40 PM CDT Temperature 36.8 C (98.2 F) 02/26/2018 11:46 AM TIBCO DEVELOPER Respiratory Rate 19 02/26/2018 1:05 PM TIBCO DEVELOPER Oxygen Saturation 96% 09/25/2021 1:40 PM CDT Inhaled Oxygen Concentration 21% 02/26/2018 1 2:45 PM TIBCO DEVELOPER Weight 102.5 kg (226 lb) 08/11/2023 8:39 [...] 2) 2017 SCREENING FOR DIABETES 08/11/2023 02/26/2018 DEPRESSION SCREENING 02/18/2024 COVID-19 VACCINE (1 - 2023-2 5 season) 2024 INFLUENZA VACCINE (#1) 2024 11/14/2017 HIB VACCINE [...] POINT OF CARE Routine 02/26/2018 9:20 AM TIBCO DEVELOPER from Last 3 Months or Most Recently Relevant to Health Maintenance Results * (ABNORMAL) GLUCOSE - POINT OF CARE (02/26/2018 9:20 AM TIBCO DEVELOPER) [facility] Glucose WB/POC 151(H) 70 - 115 mg/dL 02/26/2018 9:25 AM TIBCO DEVELOPER [facility] Specimen Type Arterial/C apillary 02/26/2018 9:25 AM TIBCO DEVELOPER [facility] Blood BLOOD SPECIMEN / Unknown 02/26/2018 9:20 AM TIBCO DEVELOPER 02/26/2018 9:25 AM TIBCO DEVELOPER Narrative [facility] - 02/26/2018 9:25 AM TIBCO DEVELOPER Laser Specialist: VANESA MCCOY us Sergio Keita MD LAB - POINT OF CARE ORDERABLES [place] [address], [facility] [phone] from Last 3 Months or Most Recently Relevant to Health Maintenance Insurance [facility] ANTH BCBS/BLUE BLUE CROSS BLUE [facility] [address] [place] [address] Care Teams Monumental Stonemason Relationship Specialty Start Date End Date Elder Liang MD [address] [place] [phone] PCP - General 11/12/17 Biju Keys DO [address] [facility] [address] [place] [address] 11/26/17
== END 2024-11-01 17:26 | disposition home or self-care (01) ==
LOC: ANHLAB 17:26
PROVIDERS: PCP Family Medicine; Visit Provider Nurse Practitioner Family
DX: I10 Essential (primary) hypertension (principal); Z12.5 Encounter for screening for malignant neoplasm of prostate
CPT/HCPCS: 36415; 84153; 84443; 85027; G0103